=== PATIENT | male | born 1945 | race Caucasian/White ===

== ENCOUNTER 2017-03-31 06:28 | Day surgery (SDC) | payer MEDICARE, OTHER ==
[2017-03-25 17:23] VITALS: BMI 23.7
[~2017-03-31 06:28] MED LIST: DEXAMETHASONE SOD PHOSPHATE 10 MG/ML 1 ML VIAL IV ONE; HEPARIN SODIUM,PORCINE 5,000 UNIT/ML 1 ML VIAL SQ ONE; LACTATED RINGERS 1,000 ML IV SCH; ONDANSETRON 4 MG/2 ML VIAL IVP ONE; ceFAZolin 2 GM in SODIUM CHLORIDE 0.9% 100 ML IVPB ONE
[2017-03-31] MEDS ORDERED: LIDOCAINE 1% 20 ML VIAL (10MG/ML) FOR IV START INTRADERMA ONE (07:09)
--- NOTE | 2017-03-31 07:44 | P.GSHP ---
History of Present Illness H&P Date: 03/31/17 Chief Complaint: Left inguinal hernia Patient with complaints of left groin swelling. Increasing in size recently. Some discomfort. No bowel related complaints. His previous prostatectomy. No prior hernia Past Medical History Past Medical History: Cancer, GERD/Reflux, Osteoarthritis (OA) Additional Past Medical History / Comment(s): HX OF PROSTATE CANCER., ENVIRONMENTAL ALLERGIES., LEFT INGUINAL HERNIA. History of Any Multi-Drug Resistant Organisms: None Reported Additional Past Surgical History / Comment(s): PROSTATE, COLONOSCOPY Past Anesthesia/Blood Transfusion Reactions: No Reported Reaction Past Psychological History: No Psychological Hx Reported Smoking Status: Former smoker Past Alcohol Use History: Daily Additional Past Alcohol Use History / Comment(s): 1 BEER PER DAY OR LESS. QUIT SMOKING 15 YRS AGO. SMOKED APPROX 2 PPD FOR 20 YEARS. Past Drug Use History: None Reported - Past Family History Mother Family Medical History: Cancer Medications and Allergies Home Medications Medication Instructions Recorded Confirmed Type Acetaminophen Tab [Tylenol Tab] 650 mg PO Q6H PRN 03/25/17 03/31/17 History Aspirin [Adult Low Dose Aspirin EC] 81 mg PO Q48H 03/25/17 03/31/17 History Ibuprofen [Motrin] 200 - 400 mg PO Q6HR PRN 03/25/17 03/31/17 History Multivitamin/Iron/Folic Acid 1 each PO DAILY 03/25/17 03/31/17 History [Centrum Complete Multivit Tab] Prilosec Otc (Unknown Dose) 1 tab PO DAILY 03/25/17 03/31/17 History Simvastatin [Zocor] 40 mg PO HS 03/25/17 03/31/17 History Stool Softner 1 cap PO HS PRN 03/25/17 03/31/17 History Allergies Allergy/AdvReac Type Severity Reaction Status Date / Time No Known Allergies Allergy Verified 03/25/17 17:12 Surgical - Exam Vital Signs Temp Pulse Resp BP Pulse Ox 97.5 F L 71 16 164/77 99 03/31/17 06:46 03/31/17 06:46 03/31/17 06:46 03/31/17 06:46 03/31/17 06:46 Physical exam: General: Well-developed, well-nourished HEENT: Normocephalic, sclerae nonicteric Abdomen: Nontender, nondistended, reducible left hernia Extremities: No edema Neuro: Alert and oriented Assessment and Plan (1) Left inguinal hernia Narrative/Plan: Will proceed with operative repair with mesh. Risks of bleeding, infection, recurrence, chronic pain, visceral injury were discussed. He understands and wishes to proceed. Status: Acute
[2017-03-31] MEDS ORDERED: ROCURONIUM BROMIDE 10 MG/ML 10 ML VIAL IV ONE (07:57)
[2017-03-31] MEDS ORDERED: PROPOFOL 10 MG/ML 20 ML VIAL IV ONE (07:57)
[2017-03-31] MEDS ORDERED: LIDOCAINE 1% INJ 10MG/ML (20 ML MDV) ONE (07:57)
[2017-03-31] MEDS ORDERED: ePHEDrine 50 MG/ML 1 ML AMP ONE (07:57)
[2017-03-31] MEDS ORDERED: PHENYLEPHRINE-0.9% NACL SYG 1 MG/10 ML SYRINGE ONE (07:57)
[2017-03-31] MEDS ORDERED: GLYCOPYRROLATE 0.2 MG/ML 2 ML VIAL ONE (07:57)
[2017-03-31] MEDS ORDERED: SUCCINYLCHOLINE CHLORIDE 100 MG/5 ML SYR IV ONE (07:57)
[2017-03-31] MEDS ORDERED: MIDAZOLAM 2 MG/2 ML VIAL ONE (07:57)
[2017-03-31] MEDS ORDERED: NEOSTIGMINE 1 MG/ML 10 ML VIAL ONE (07:57)
[2017-03-31] MEDS ORDERED: fentaNYL (PF) 50 MCG/ML 2 ML AMP ONE (07:57)
[2017-03-31] MEDS ORDERED: BUPIVACAIN-EPI 0.25%-1:200,000 30 ML VIAL SQ ONE ×2 (08:15→08:59)
[2017-03-31 09:15] VITALS: TEMP 96.9
[2017-03-31] MEDS ORDERED: HYDROcodone/APAP 5-325MG 1 EACH TAB PO PRN (09:25)
[2017-03-31] MEDS ORDERED: NALOXONE 0.4 MG/ML 1 ML VIAL IV PRN (09:25)
--- NOTE | 2017-03-31 09:27 | P.PCN ---
Date of Procedure: 03/31/17 Preoperative Diagnosis: Postoperative Diagnosis: Procedure(s) Performed: PREOPERATIVE DIAGNOSIS: Left inguinal hernia POSTOPERATIVE DIAGNOSIS: Same PROCEDURE: Left inguinal hernia repair with mesh SURGEON: Rosemary EBL: Minimal ANESTHESIA: General COMPLICATIONS: None OPERATIVE PROCEDURE: Patient was placed in the operating table in the supine position and placed under general anesthesia. An oblique incision was made in the left groin. Dissection down through the subcutaneous tissues took place using electrocautery. The external oblique fascia was incised using a scalpel. This opening was lengthened using the Metzenbaum scissors. The spermatic cord was encircled with a [place] drain. The structures were identified and preserved. Careful dissection revealed an indirect hernia sac. This was opened and a portion of the sigmoid colon was adherent to the inner wall of the hernia sac. This was able to be sharply dissected back into the perineal cavity. This was carefully dissected back to the internal inguinal ring where it was ligated using 2 separate 0 silk stick tie sutures. A 3" x 6" Prolene mesh was cut to fit on the exposed fascia. This was sutured to the pubic tubercle the folding edge of the inguinal ligament and the conjoined tendon using 2-0 Nurolon sutures. A slit was created in the mesh and the mesh was wrapped around the spermatic cord and sutured back to itself. The external oblique was then reapproximated using a running 2-0 Vicryl suture. The subcutaneous tissues were reapproximated using a 3-0 Vicryl sutures. The skin was closed using 4-0 Monocryl sutures. Steri-Strips and sterile dressings were then applied. DISPOSITION: Stable to recovery room Implants: Indications for Procedure: Operative Findings: Description of Procedure:
[2017-03-31] MEDS: HYDROmorphone 1 MG/ML 1 ML SYRINGE IVP PRN ×2 (09:32→09:48)
[2017-03-31] MEDS ORDERED: HYDROcodone/APAP 5-325MG 1 EACH TAB PO ONE (10:10)
[2017-03-31 10:51] VITALS: RESP 18
[2017-03-31 11:13] VITALS: BP 144/83; PULSE 72
== END 2017-03-31 11:30 | disposition home or self-care (01) ==
LOC: OR 06:28
PROVIDERS: ATTEND Surgery
DX: K40.90 Unilateral inguinal hernia, without obstruction or gangrene, not specified as recurrent (principal); K21.9 Gastro-esophageal reflux disease without esophagitis; E78.5 Hyperlipidemia, unspecified; M19.90 Unspecified osteoarthritis, unspecified site; Z79.82 Long term (current) use of aspirin; Z79.899 Other long term (current) drug therapy; Z85.46 Personal history of malignant neoplasm of prostate; Z90.79 Acquired absence of other genital organ(s); Z87.891 Personal history of nicotine dependence
CPT/HCPCS: 88302; 49505; C1781; J2250; J1644; J1100; J2710; J0690; J2405; J2001; J3010; J1170; J2370; J0330; J2704

== ENCOUNTER → 2018-04-27 | Outpatient (CLI) | payer MEDICARE, OTHER ==
--- NOTE | 2018-04-27 22:43 | MR ---
EXAMINATION TYPE: MR brain wo con DATE OF EXAM: 04/27/2018 COMPARISON: NONE HISTORY: Mental status change and/or altered mental status per order and patient. TECHNIQUE: Multiplanar, multisequence imaging of the brain and brainstem is performed without IV cont rast. FINDINGS: Diffusion weighted images demonstrate a single focus of increased signal on diffusion-weighted images with diminished signal on ADC mapping and T1 hypointensity as well as T2 hyperintensity in the right parietal occipital subcortical white matter image 176 series 305 felt to reflect evolving area of ac [place] lacunar infarction. There are additional areas of less intensity on diffusion-weighted images wit h increased signal on ADC mapping of T1 hypointensity and T2 hyperintensity could reflect areas of frost bacute infarct throughout the right frontal and parietal lobes in the MCA distribution. There are are as of involvement in the deep and subcortical white matter. There are suspected area of old infarct o r encephalomalacia in the deep right parietal occipital white matter axial image 20 series 401 and 50 1. There is no worrisome extra-axial fluid collection. There is background mild ventricular and sulcal p rominence consistent with mild age-related cerebral atrophy. There are scattered foci of T2 hyperinte nsity seen throughout the white matter bilaterally most likely an basis of product of chronic small v essel ischemic change. Midline structures demonstrate normal morphology. The craniocervical junction appears within normal limits. Normal vascular flow voids are present. The visualized sinuses are clear and the globes are i ntact. IMPRESSION: 1. Asymmetric areas of ischemia of right versus left brain parenchyma felt to be in the MCA distribut ion. Small focus of acute lacunar infarct is felt present. There are additional areas of subacute inf arct and chronic infarction identified. There is background of mild diffuse cerebral atrophy and mild chronic small vessel ischemic change.
== END | disposition home or self-care (01) ==
LOC: RADMRIMAIN 19:22
PROVIDERS: ATTEND Family Medicine
DX: I63.9 Cerebral infarction, unspecified (principal); G31.9 Degenerative disease of nervous system, unspecified; M41.82 Other forms of scoliosis, cervical region; R41.82 Altered mental status, unspecified
CPT/HCPCS: 70551

== ENCOUNTER → 2018-06-30 | Outpatient (CLI) | payer MEDICARE, OTHER ==
--- NOTE | 2018-07-01 07:36 | US ---
EXAMINATION TYPE: US carotid duplex BILAT DATE OF EXAM: 06/30/2018 COMPARISON: NONE CLINICAL HISTORY: I69.30 STROKE. EXAM MEASUREMENTS: RIGHT: Peak Systolic Velocity (PSV) cm/sec ----- Right CCA: 102.2 ----- Right ICA: occluded ----- Right ECA: 143.1 elevated ICA/CCA ratio: RIGHT: End Diastole cm/sec ----- Right CCA: 18.0 ----- Right ICA: occluded ----- Right ECA: 22.9 LEFT: Peak Systolic Velocity (PSV) cm/sec ----- Left CCA: 96.8 ----- Left ICA: 116.2 ----- Left ECA: 150.3 elevated ICA/CCA ratio: 1.2 LEFT: End Diastole cm/sec ----- Left CCA: 30.6 ----- Left ICA: 38.6 ----- Left ECA: 0 VERTEBRALS (direction of flow): Right Vertebral: Antegrade Left Vertebral: Antegrade Rhythm: Normal Occluded right ICA Elevated velocities in bilateral ECA Moderate, Heterogenous plaque left bulb IMPRESSION: No evidence for hemodynamically significant stenosis. Criteria for Assigning % of Stenosis / Diameter reduction (Estimation based on the indirect measurements of the internal carotid artery velocities (ICA PSV). 1. Normal (no stenosis)=ICA PSV < 125 cm/s: ratio < 2.0: ICA EDV<40 cm/s. 2. Less than 50% stenosis=ICA PSV < 125 cm/s: ratio < 2.0: ICA EDV<40 cm/s. 3. 50 to 69% stenosis=ICA PSV of 125 to 230 cm/s: ration 2.0 ? 4.0: ICA EDV 40-100 cm/s. 4. Greater than 70% stenosis to near occlusion= ICA PSV > 230 cm/s: ratio > 4.0: ICA EDV > 100 cm/s. 5. Near occlusion= ICA PSV velocities may be low or undetectable: variable ratio and ICA EDV. 6. Total occlusion=unable to detect flow.
== END | disposition home or self-care (01) ==
LOC: RADUSWWP 14:30
PROVIDERS: ATTEND Psychiatry & Neurology Neurology
DX: I69.30 Unspecified sequelae of cerebral infarction (principal)
CPT/HCPCS: 93880

== ENCOUNTER → 2018-08-03 | Day surgery (SDC) | payer MEDICARE, OTHER ==
[2018-07-28 10:27] VITALS: BMI 23.7
[~2018-08-03] MED LIST changes: -DEXAMETHASONE SOD PHOSPHATE 10 MG/ML 1 ML VIAL IV ONE; -HEPARIN SODIUM,PORCINE 5,000 UNIT/ML 1 ML VIAL SQ ONE; +IV FLUID CONTINUATION 475 ML IV ONE; -LACTATED RINGERS 1,000 ML IV SCH; +LIDOCAINE 1% INJ 10MG/ML (20 ML MDV) ONE; +MIDAZOLAM 2 MG/2 ML VIAL IVP ONE; +MIDAZOLAM 2 MG/2 ML VIAL ONE; -ONDANSETRON 4 MG/2 ML VIAL IVP ONE; +SODIUM CHLORIDE 0.9% 1,000 ML IV SCH; -ceFAZolin 2 GM in SODIUM CHLORIDE 0.9% 100 ML IVPB ONE; +ceFAZolin IN SWFI 2 GM/20 ML SYRINGE IVP ONE; +fentaNYL (PF) 50 MCG/ML 2 ML AMP IV ONE; +fentaNYL (PF) 50 MCG/ML 2 ML AMP ONE
[2018-08-03 06:52] VITALS: RESP 18
[2018-08-03] MEDS: BENZOCAINE SPRAY 1 CAN MUCOUS MEM ONE ×3 (07:42→07:52)
[2018-08-03 08:20] VITALS: TEMP 98
--- NOTE | 2018-08-03 08:21 | ECHOT ---
TRANSESOPHAGEAL ECHOCARDIOGRAM INDICATION: TIA. PROCEDURE NOTE: After obtaining informed consent, transesophageal echocardiogram was performed in left lateral position using an Omniplane probe. Local and IV sedation were obtained using Xylocaine spray and intravenous Versed and fentanyl. The patient tolerated the procedure well without any obvious immediate complications. Patient received moderate conscious sedation. Total sedation time was 15 minutes. FINDINGS: 1. There is no intracardiac thrombus within the left atrial appendage, left atrium, right atrium, right ventricular or left ventricle. 2. Left ventricle has normal size and systolic function. 3. Interatrial septum: There is no evidence of vddc-ks-[id number] shunt by color-flow Doppler or wbejm-cy-yfog shunt by agitated saline contrast study. 4. Mitral valve appears anatomically normal. There is mild mitral regurgitation noted. 5. There is mild tricuspid regurgitation noted. 6. Aortic valve is a 3-leaflet valve. There is no evidence of aortic stenosis or regurgitation. 7. Aorta: Aortic root is free of aneurysm, dissection or significant atherosclerosis. CONCLUSIONS: 1. Normal left ventricular systolic function. 2. No evidence of intracardiac thrombus. 3. No intracardiac shunt. MMODL / IJN: [id number] /
--- NOTE | 2018-08-03 12:18 | CE ---
CARDIAC ELECTROPHYSIOLOGY REPORT LOOP RECORDER INSERTION REPORT: PROCEDURE: Loop recorder insertion. PERFORMED BY: Dr. Stephanie Rodríguez. Moderate conscious sedation time was less than 15 minutes. CLINICAL INFORMATION: Mr. Sarath Gibson, a gentleman with a history of CVA with good recovery. 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 He was evaluated and seen by Dr. Villanueva, who performed a transesophageal echo today and he was also advised to have a loop recorder. The risks, benefits, options were explained to the patient. PROCEDURE NOTE: Under local anesthesia and strict aseptic precautions, after administration of the antibiotic concurrently, a single stab incision was made in the left 4th intercostal space. Using the tool provided the [employer] loop recorder link device was inserted in a lateral direction. A single suture was used to close the incision. The recordings were excellent with a signal of 0.49 mV. The patient tolerated the procedure well without complication. The settings were for a cryptogenic stroke settings with a low rate of 40 and high rate of 158 beats per minute. The patient tolerated procedure well without complications. The details were discussed with the patient and and I expect he will be discharged in the next [address] Dr[address] Villanueva in the office for a visit as well as a device check. LOOP RECORDER DETAILS: Corporate Director is [employer], model Reveal LINQ [id number], serial #[id number]. The settings were for a cryptogenic stroke with a low rate of 40 and high rate of 158 beats per minute and a tachy duration of 16 beats. Patient tolerated the procedure well. MMODL / IJN: [id number] /
[2018-08-03 12:45] VITALS: BP 139/95; PULSE 63
== END ==
LOC: CATHCVL 06:17
PROVIDERS: ATTEND Internal Medicine Cardiovascular Disease
DX: G45.9 Transient cerebral ischemic attack, unspecified (principal); I34.0 Nonrheumatic mitral (valve) insufficiency; E78.5 Hyperlipidemia, unspecified; Z79.82 Long term (current) use of aspirin; Z79.899 Other long term (current) drug therapy; Z82.49 Family history of ischemic heart disease and other diseases of the circulatory system; Z72.0 Tobacco use
CPT/HCPCS: 93312; 93320; 93325; 33282; C1764; J2250; J3010; J0690

== ENCOUNTER 2019-11-03 10:01 | Inpatient (IN) | payer MEDICARE, OTHER ==
[2019-11-03] MEDS ORDERED: SODIUM CHLORIDE 0.9% 500 ML 500 ML IV STA (10:13)
--- NOTE | 2019-11-03 10:18 | ED ---
General Adult HPI - General Chief complaint: Neuro Symptoms/Deficit Stated complaint: Vision loss Time Seen by Provider: 11/03/19 10:05 Source: patient, RN notes reviewed, old records reviewed Mode of arrival: EMS Limitations: no limitations - History of Present Illness Initial comments: This is a 74-year-old male who presents emergency Department complaining of almost complete visual loss out of his right eye. Patient states he went to bed last night at about midnight and he woke up this morning and had almost complete visual loss out of his right eye. Patient denies any eye pain. Patient denies any headache patient denies any numbness or weakness of any of his extremities. Patient denies any speech problem. Patient states he had a stroke in the past and they began with decreased vision however today is much worse. Patient denies any history of diabetes. Patient does state he has a history of high blood pressure. Patient denies any recent fever chills. Patient denies any chest pain palpitations difficulty breathing shortness of breath. Patient denies any abdominal pain. - Related Data Home Medications Medication Instructions Recorded Confirmed Acetaminophen Tab [Tylenol Tab] 650 mg PO Q6H PRN 03/25/17 08/03/18 Ibuprofen [Motrin] 200 - 400 mg PO Q6HR PRN 03/25/17 08/03/18 Multivitamin/Iron/Folic Acid 1 each PO DAILY 03/25/17 08/03/18 [Centrum Complete Multivit Tab] Prilosec Otc (Unknown Dose) 1 tab PO DAILY 03/25/17 08/03/18 Simvastatin [Zocor] 40 mg PO HS 03/25/17 08/03/18 Stool Softner 1 cap PO HS 03/25/17 08/03/18 Aspirin 325 mg PO DAILY 07/28/18 08/03/18 Allergies Allergy/AdvReac Type Severity Reaction Status Date / Time No Known Allergies Allergy Verified 08/03/18 06:39 Review of Systems ROS Statement: Those systems with pertinent positive or pertinent negative responses have been documented in the HPI. ROS Other: All systems not noted in ROS Statement are negative. Past Medical History Past Medical History: Cancer, CVA/TIA, Eye Disorder, GERD/Reflux, Hyperlipidemia, Osteoarthritis (OA) Additional Past Medical History / Comment(s): CVA APRIL 2018, NO RESIDUAL EFFECTS, HX OF PROSTATE CANCER 10 YRS AGO, ENVIRONMENTAL ALLERGIES. DRY EYES. History of Any Multi-Drug Resistant Organisms: None Reported Past Surgical History: Hernia Repair Additional Past Surgical History / Comment(s): PROSTATE SURGERY, COLONOSCOPY. Past Anesthesia/Blood Transfusion Reactions: No Reported Reaction Past Psychological History: No Psychological Hx Reported Smoking Status: Former smoker Past Alcohol Use History: Daily Past Drug Use History: None Reported - Past Family History Mother Family Medical History: Cancer Father Family Medical History: Cancer Brother(s) Family Medical History: Cancer General Exam - General Exam Comments Initial Comments: GENERAL: Patient is well-developed and well-nourished. Patient is nontoxic and well- hydrated and is in no acute distress. ENT: Neck is soft and supple. No significant lymphadenopathy is noted. Oropharynx is clear. Moist mucous membranes. Neck has full range of motion without eliciting any pain. EYES: The sclera were anicteric and conjunctiva were pink and moist. Extraocular movements were intact and pupils were equal round and reactive to light. Eyel ids were unremarkable. PULMONARY: Unlabored respirations. Good breath sounds bilaterally. No audible rales rhonchi or wheezing was noted. CARDIOVASCULAR: There is a regular rate and rhythm without any murmurs gallops or rubs. ABDOMEN: Soft and nontender with normal bowel sounds. No palpable organomegaly was noted. There is no palpable pulsatile mass. SKIN: Skin is clear with no lesions or rashes and otherwise unremarkable. NEUROLOGIC: Patient is alert and oriented x3. Cranial nerves II through XII are grossly intact. Motor and sensory are also intact. Normal speech, volume and content. Symmetrical smile. Patient is unable to see out of the right eye. MUSCULOSKELETAL: Normal extremities with adequate strength and full range of motion. No lower extremity swelling or edema. No calf tenderness. LYMPHATICS: No significant lymphadenopathy is noted PSYCHIATRIC: Normal psychiatric evaluation. Limitations: no limitations Course Vital Signs 11/03/19 11/03/19 11/03/19 10:05 10:15 10:30 Temperature 97.6 F Pulse Rate 71 68 Respiratory 16 19 20 Rate Blood Pressure 166/87 166/87 165/86 O2 Sat by Pulse 99 99 98 Oximetry 11/03/19 10:45 Temperature Pulse Rate 77 Respiratory 18 Rate Blood Pressure 187/90 O2 Sat by Pulse 99 Oximetry Medical Decision Making - Medical Decision Making EKG shows normal sinus rhythm at 61 bpm VT interval 258 QRS is 70 QT interval 416 QTC is 418. Patient's EKG shows no ST segment elevation or depression or T wave abnormalities are noted. CT of the brain shows no acute abnormality. CTA of the head and neck shows a completely occluded right internal carotid artery and a stenotic left carotid artery. I spoke with Dr. Goddard and Dr. Tyrese Xiong wanted the patient admitted the hospital and he will see him at this facility. I spoke with Dr. STARR agreed to admit the patient admitted the patient wrote admitting orders I consulted vascular surgery as well as neurology - Lab Data Result diagrams: 11/03/19 10:09 11/03/19 10:09 Lab Results 11/03/19 11/03/19 11/03/19 Range/Units 10:09 10:09 10:09 WBC 6.2 (3.8-10.6) k/uL RBC 4.60 (4.30-5.90) m/uL Hgb 15.2 (13.0-17.5) gm/dL Hct 43.7 (39.0-53.0) % MCV 95.0 (80.0-100.0) fL MCH 33.1 (25.0-35.0) pg MCHC 34.9 (31.0-37.0) g/dL RDW 11.7 (11.5-15.5) % Plt Count 155 (150-450) k/uL Neutrophils % 70 % Lymphocytes % 20 % Monocytes % 4 % Eosinophils % 2 % Basophils % 1 % Neutrophils # 4.3 (1.3-7.7) k/uL Lymphocytes # 1.2 (1.0-4.8) k/uL Monocytes # 0.3 (0-1.0) k/uL Eosinophils # 0.1 (0-0.7) k/uL Basophils # 0.0 (0-0.2) k/uL PT 10.1 (9.0-12.0) sec INR 0.9 (<1.2) APTT 23.3 (22.0-30.0) sec Sodium 142 (137-145) mmol/L Potassium 4.4 (3.5-5.1) mmol/L Chloride 110 H (98-107) mmol/L Carbon Dioxide 24 (22-30) mmol/L Anion Gap 8 mmol/L BUN 22 H (9-20) mg/dL Creatinine 0.98 (0.66-1.25) mg/dL Est GFR (CKD-EPI)AfAm 88 (>60 ml/min/1.73 sqM) Est GFR (CKD-EPI)NonAf 76 (>60 ml/min/1.73 sqM) Glucose 107 H (74-99) mg/dL POC Glucose (mg/dL) (75-99) mg/dL POC Glu School Age Program Teacher ID Calcium 9.7 (8.4-10.2) mg/dL Total Bilirubin 0.7 (0.2-1.3) mg/dL AST 23 (17-59) U/L ALT 13 (4-49) U/L Alkaline Phosphatase 73 (38-126) U/L Total Creatine Kinase (55-170) U/L CK-MB (CK-2) (0.0-2.4) ng/mL CK-MB (CK-2) Rel Index Troponin I (0.000-0.034) ng/mL Total Protein 7.3 (6.3-8.2) g/dL Albumin 4.3 (3.5-5.0) g/dL 11/03/19 11/03/19 Range/Units 10:09 10:14 WBC (3.8-10.6) k/uL RBC (4.30-5.90) m/uL Hgb (13.0-17.5) gm/dL Hct (39.0-53.0) % MCV (80.0-100.0) fL MCH (25.0-35.0) pg MCHC (31.0-37.0) g/dL RDW (11.5-15.5) % Plt Count (150-450) k/uL Neutrophils % % Lymphocytes % % Monocytes % % Eosinophils % % Basophils % % Neutrophils # (1.3-7.7) k/uL Lymphocytes # (1.0-4.8) k/uL Monocytes # (0-1.0) k/uL Eosinophils # (0-0.7) k/uL Basophils # (0-0.2) k/uL PT (9.0-12.0) sec INR (<1.2) APTT (22.0-30.0) sec Sodium (137-145) mmol/L Potassium (3.5-5.1) mmol/L Chloride (98-107) mmol/L Carbon Dioxide (22-30) mmol/L Anion Gap mmol/L BUN (9-20) mg/dL Creatinine (0.66-1.25) mg/dL Est GFR (CKD-EPI)AfAm (>60 ml/min/1.73 sqM) Est GFR (CKD-EPI)NonAf (>60 ml/min/1.73 sqM) Glucose (74-99) mg/dL POC Glucose (mg/dL) 107 H (75-99) mg/dL POC Glu School Age Program Teacher ID Michael Perkins Calcium (8.4-10.2) mg/dL Total Bilirubin (0.2-1.3) mg/dL AST (17-59) U/L ALT (4-49) U/L Alkaline Phosphatase (38-126) U/L Total Creatine Kinase 53 L (55-170) U/L CK-MB (CK-2) 0.4 (0.0-2.4) ng/mL CK-MB (CK-2) Rel Index 0.8 Troponin I <0.012 (0.000-0.034) ng/mL Total Protein (6.3-8.2) g/dL Albumin (3.5-5.0) g/dL Disposition Clinical Impression: Cerebrovascular accident (CVA) Disposition: ADMITTED IP TO THIS HOSP Referrals: Teodoro Andrea DO [Primary Care Provider] - 1-2 days Time of Disposition: 11:54
[2019-11-03 10:24] LABS: Basophils % (A) 1 %; Eosinophils # (A) 0.1 k/uL (0-0.7); Eosinophils % (A) 2 %; HCT 43.7 % (39.0-53.0); HGB 15.2 gm/dL (13.0-17.5); Lymphocytes # (A) 1.2 k/uL (1.0-4.8); Lymphocytes % (A) 20 %; MCH 33.1 pg (25.0-35.0); MCHC 34.9 g/dL (31.0-37.0); Mean Platelet Volume 9.9; Monocytes # (A) 0.3 k/uL (0-1.0); Monocytes % (A) 4 %; Neutrophils # (A) 4.3 k/uL (1.3-7.7); Neutrophils % (A) 70 %; Platelet Count 155 k/uL (150-450); RDW 11.7 % (11.5-15.5); WBC 6.2 k/uL (3.8-10.6)
[2019-11-03 10:25] LABS: Glucose,Whole Blood 107 mg/dL (75-99)
[2019-11-03 10:32] LABS: Albumin 4.3 g/dL (3.5-5.0); Calcium 9.7 mg/dL (8.4-10.2); Potassium 4.4 mmol/L (3.5-5.1); Total Bilirubin 0.7 mg/dL (0.2-1.3); Total Protein 7.3 g/dL (6.3-8.2)
[2019-11-03 10:36] LABS: INR 0.9 (<1.2); Partial Thromboplastin Time 23.3 sec (22.0-30.0); Prothrombin Time 10.1 sec (9.0-12.0)
--- NOTE | 2019-11-03 10:36 | CT ---
EXAMINATION TYPE: CT brain wo con for TPA DATE OF EXAM: 11/03/2019 COMPARISON: None HISTORY: Right eye visual loss, stroke symptoms CT DLP: 1134.[address] of the brain was performed. The ventricles, basal cisterns and sulci overlying the cerebral convexities demonstrate mild enlargem ent. Small area of remote insult right occipital region. There is no evidence for intracranial hemorrhage or sulcal effacement. There is decreased attenuation about the periventricular white matter and deep white matter of both c erebral hemispheres, compatible with chronic small vessel ischemia. Differential diagnosis does inclu de demyelination. No mass effects are seen.No midline shift. Osseous calvarium is intact. If symptoms persist consider MRI. IMPRESSION: 1. Age related atrophic and chronic small vessel ischemic change without acute intracranial process s een at this time.
[2019-11-03] MEDS ORDERED: CLOPIDOGREL 75 MG TAB PO STA (10:38)
[2019-11-03] MEDS ORDERED: ASPIRIN 325 MG TAB PO STA (10:39)
[2019-11-03 10:43] LABS: Creatine Kinase 53 U/L (55-170)
[2019-11-03 10:57] LABS: Creatine Kinase MB 0.4 ng/mL (0.0-2.4); Troponin I <0.012 ng/mL (0.000-0.034)
--- NOTE | 2019-11-03 11:06 | XR ---
EXAMINATION TYPE: XR chest 2V DATE OF EXAM: 11/03/2019 COMPARISON: NONE HISTORY: Altered mental status and weakness. TECHNIQUE: Frontal and lateral views of the chest are obtained. FINDINGS: There is chronic parenchymal change without suspicious focal air space opacity, pleural ef fusion, or pneumothorax seen. Moderate biapical pleural/parenchymal scarring. The cardiac silhouette size is within normal limits. Overlying loop recorder anterior left chest wall is present. Multilevel spurring in the lower thoracic spine. IMPRESSION: Chronic changes without acute pulmonary process.
--- NOTE | 2019-11-03 11:17 | CT ---
EXAMINATION TYPE: CT angio head neck DATE OF EXAM: 11/03/2019 COMPARISON: HISTORY: Rt eye vision loss CT DLP: 1384.8 mGycm CONTRAST: Performed with IV Contrast, patient injected with 65 mL of Isovue 370. Combination Contrast CTA cervical carotids and [place] CTA cervical carotids with 3-D recons truction Contrast CTA of the cervical carotids was performed 3-D reconstruction imaging obtained at a separate workstation. Right carotid system: Mild plaque is seen of the right common carotid artery. Nonvisualization of the right internal carotid artery compatible with occlusion. ECA is patent. Right vertebral artery appe ars unremarkable. Left carotid system: Mild plaque is seen of the left common carotid artery. There is severe soft cris que also noted at the proximal ICA. High-grade stenosis noted estimated at 90%. ECA is patent. Left vertebral artery appears unremarkable. IMPRESSION: 1. Occlusion right ICA. 2. High-grade stenosis noted proximal left ICA estimated at 90%. CTA [place] with 3-D reconstruction Contrast CTA of the [place] was performed 3-D reconstruction imaging obtained at a separate workstation. Vertebrobasilar and their major tributaries are patent. I do not see evidence for sizable aneurysm o r vascular malformation. Nonvisualization right ICA. Left ICA is visualized. Please note MRI provides greater sensitivity and specificity. Visualized brain appears grossly unremarkable. IMPRESSION: 1. Nonvisualization of the right internal carotid artery.
[2019-11-03] MEDS ORDERED: ACETAMINOPHEN TAB 325 MG TAB PO PRN (13:58)
--- NOTE | 2019-11-03 15:22 | P.HPIM ---
History of Present Illness This is a pleasant 74 years old male with past medical history of CVA/TIA, GERD, hyperlipidemia, osteoarthritis, prostate cancer status post surgery, constipation. Presents with sudden loss patient in the right eye. Patient woke up with loss of vision in his right eye, without any associated symptoms, no weakness in arms or limbs, no headache, no abnormal sensation, no difficulty swallowing. As time goes on his septic and in some vision in his right eye but this blurry and double vision. Of note the patient says about 2 years ago he has TIA with a similar I problem. At that time he saw Dr. Estrada the milk treater for loop recorder which was uneventful. Patient at home was taking aspirin 325 mg daily but not Plavix Vital signs stable, blood pressure on the high side currently 175/81. Labs including CBC, BMP, INR, liver enzymes were unremarkable. Troponin is negative. EKG showing normal sinus rhythm at [address]-T changes. CT of the head: No acute process like hemorrhage or mass or deviation. CTA of the head and neck showing occlusion of the right ICA and high-grade stenosis of the proximal left ICA estimated to be 90%. As per emergency room team vascular surgeon has been consulted and they recommended to admit the patient to my clinic in hospital under medical service and they will be on consult. On admission patient was started on aspirin 325 mg and Plavix 300 mg once. Also he was given normal saline bolus 500 mL Review of Systems CONSTITUTIONAL: No fever, no malaise, no fatigue. HEENT: No recent visual problems or hearing problems. Denied any sore throat. CARDIOVASCULAR: No orthopnea, PND, no palpitations, no syncope. PULMONARY: No shortness of breath, no cough, no hemoptysis. GASTROINTESTINAL: No diarrhea, no nausea, no vomiting, no abdominal pain. Normoactive bowel sounds. NEUROLOGICAL: No headaches, no weakness, no numbness. HEMATOLOGICAL: Denies any bleeding or petechiae. GENITOURINARY: Denies any burning micturition, frequency, or urgency. MUSCULOSKELETAL/RHEUMATOLOGICAL: Denies any joint pain, swelling, or any muscle pain. ENDOCRINE: Denies any polyuria or polydipsia. Past Medical History Past Medical History: Cancer, CVA/TIA, Eye Disorder, GERD/Reflux, Hyperlipidemia, Osteoarthritis (OA) Additional Past Medical History / Comment(s): 04/2018 TIA-experienced R eye vision change and L arm numbness/some mental changes, prostate cancer with surgery, arthritis in shoulders/back, constipation. History of Any Multi-Drug Resistant Organisms: None Reported Past Surgical History: Hernia Repair, Prostate Surgery Additional Past Surgical History / Comment(s): Bilateral inguinal hernia repairs, prostatectomy, colonoscopy, SANDRINE, Loop recorder Past Anesthesia/Blood Transfusion Reactions: No Reported Reaction Smoking Status: Former smoker - Past Family History Mother Family Medical History: Cancer Additional Family Medical History / Comment(s): multiple myeloma Father Family Medical History: Cancer Additional Family Medical History / Comment(s): Lymphoma Brother(s) Family Medical History: Cancer Additional Family Medical History / Comment(s): Hodgkins or nonhodgkins lymphoma Medications and Allergies Home Medications Medication Instructions Recorded Confirmed Type Acetaminophen Tab [Tylenol Tab] 325 - 650 mg PO Q6H PRN 03/25/17 11/03/19 History Ibuprofen [Motrin] 200 - 400 mg PO Q6HR PRN 03/25/17 11/03/19 History Aspirin 325 mg PO DAILY 07/28/18 11/03/19 History Metoprolol Succinate (ER) [Toprol 12.5 mg PO DAILY 11/03/19 11/03/19 History Xl] Multivit-Min/FA/Lycopen/Lutein 1 tab PO DAILY 11/03/19 11/03/19 History [Centrum Silver Men Tablet] Omeprazole Magnesium [PriLOSEC OTC] 20 mg PO DAILY 11/03/19 11/03/19 History Rosuvastatin Calcium 20 mg PO HS 11/03/19 11/03/19 History Allergies Allergy/AdvReac Type Severity Reaction Status Date / Time No Known Allergies Allergy Verified 11/03/19 11:55 Physical Exam Vitals: Vital Signs Temp Pulse Resp BP Pulse Ox 11/03/19 12:55 73 18 175/81 100 11/03/19 12:17 97.6 F 77 18 169/92 96 11/03/19 12:15 77 18 169/92 96 11/03/19 10:45 77 18 187/90 99 11/03/19 10:30 20 165/86 98 11/03/19 10:15 68 19 166/87 99 11/03/19 10:05 97.6 F 71 16 166/87 99 Intake and Output 11/02/19 11/03/19 11/03/19 22:59 06:59 14:59 Other: Voiding Method Toilet Weight 81.647 kg GENERAL: The patient is alert and oriented x3, not in any acute distress. Well developed, well nourished. HEENT: Pupils are round and equally reacting to light. EOMI. No scleral icterus. No conjunctival pallor. Normocephalic, atraumatic. No pharyngeal erythema. No thyromegaly. CARDIOVASCULAR: S1 and S2 present. No murmurs, rubs, or gallops. PULMONARY: Chest is clear to auscultation, no wheezing or crackles. ABDOMEN: Soft, nontender, nondistended, normoactive bowel sounds. No palpable organomegaly. MUSCULOSKELETAL: No joint swelling or deformity. EXTREMITIES: No cyanosis, clubbing, or pedal edema. -NEUROLOGICAL: Patient is awake and alert 3. He has Blurred and double vision of the right eye, rest of cranial nerves are grossly intact. Strength is 5/5 in all limbs, sensation intact, meningeal signs are absent Gross neurological examination did not reveal any focal deficits. SKIN: No rashes. No petechiae Results CBC & Chem 7: 11/03/19 10:09 11/03/19 10:09 Labs: Abnormal Lab Results - Last 24 Hours (Table) 11/03/19 11/03/19 11/03/19 Range/Units 10:09 10:09 10:14 Chloride 110 H (98-107) mmol/L BUN 22 H (9-20) mg/dL Glucose 107 H (74-99) mg/dL POC Glucose (mg/dL) 107 H (75-99) mg/dL Total Creatine Kinase 53 L (55-170) U/L Thrombosis Risk Factor Assmnt - Choose All That Apply Any of the Below Risk Factors Present?: Yes Other Risk Factors: Yes Each Risk Factor Represents 2 Points: Age 61-74 years, Malignancy Other congenital or acquired thrombophilia - If yes, enter type in comment: No Each Risk Factor Represents 5 Points: Stroke (< 1 month) Thrombosis Risk Factor Assessment Total Risk Factor Score: 9 Thrombosis Risk Factor Assessment Level: High Risk Assessment and Plan Assessment: Loss of right eye vision mostly related to acute stroke, associated with double/blurred vision Bilateral carotid artery disease, total occlusion of the right ICA and 90% stenosis of the left ICA Hyperlipidemia GERD History of prostate cancer status post surgery Constipation History of TIA/CVA Plan: This is a pleasant 74 years old male who presents with loss of vision in the right eye and acute stroke. Consult neurology and vascular surgery for his carotid artery stenosis/occlusion. He knew with aspirin and Plavix. Continue with a neurogenic Labs and medication were reviewed.. Continue same treatment. Continue with symptomatic treatment. Resume home medication. Monitor lytes and vitals. DVT and GI prophylaxis. Further recommendations of the clinical course of the patient DVT prophylaxis: Subcutaneous heparin GI Prophylaxis: Pepcid PT/OT: Pending Prognosis is guarded
--- NOTE | 2019-11-03 16:16 | P.CNNES ---
History of Present Illness Consult date: 11/03/19 Requesting physician: Donte Wadsworth Reason for Consult: CVA History of Present Illness: Patient is a 74-year-old male, who woke up this morning at 8:30 AM and had no vision in the right eye. It was all a murcia fog. Patient states that he went to bed at 12:30 AM in usual state of health. He remembers waking up at 3 AM and he was feeling fine. The next time he woke up at 8:30 AM, he noticed no vision right eye. No other associated focal neurological symptoms like numbness tingling focal weakness, headache, slurred speech facial droop or balance issues. Patient arrived to the ER at 10:01 AM. Patient underwent computed tomography scan of the head, which revealed age-related atrophy and chronic small vessel ischemic changes without acute intracranial process. CTA of the head and neck showed nonvisualization of the right ICA. It also showed high- grade stenosis of left ICA estimated 90%. EKG showed normal sinus rhythm. Chest x-ray showed chronic changes without acute pulmonary process. Patient went arrived to the ER, blood pressure was 166/87, pulse rate 71 saturation 99%. Patient had normal CBC, PT/PTT, Chem-20. Patient was given a loading dose of Plavix 300 mg in the ER along with aspirin 325 mg. Patient states that his vision has slightly improved in the. 3. At first it was complete murcia all around. Now he has some appearance of peripheral vision, but the Center is still murcia fog. Patient denies any problem with the vision field on the left. Patient has history of hypertension, and it. Her blood pressures has been running high. He denies diabetes. He has hyperlipidemia and recently his medications simvastatin was changed to Crestor by his speech writer about a week ago. Patient does take a full aspirin 325 mg daily for almost a year. Prior he has been taking a low-dose aspirin for a few years. Patient states that he is fully compliant with medication did not missed dose of his aspirin. Patient has history of smoking 2 packs per day for 40 years, quit at age 60 (age [age]). Denies any alcohol. Patient also mentions that about 2 years ago he has similar visual symptoms in the right eye. He had intermittent graying of the vision, would occur for a couple seconds to half a minute off and on for a week. It finally cleared up. However at that time he also had some numbness of left side of his arm. He was diagnosed with acute stroke at that time with right ICA occlusion. Review of Systems All 14 point review of systems were reviewed and is unremarkable except above. Past Medical History Past Medical History: Cancer, CVA/TIA, Eye Disorder, GERD/Reflux, Hyperlipidemia, Osteoarthritis (OA) Additional Past Medical History / Comment(s): 04/2018 TIA-experienced R eye vision change and L arm numbness/some mental changes, prostate cancer with surgery, arthritis in shoulders/back, constipation. History of Any Multi-Drug Resistant Organisms: None Reported Past Surgical History: Hernia Repair, Prostate Surgery Additional Past Surgical History / Comment(s): Bilateral inguinal hernia repai rs, prostatectomy, colonoscopy, SANDRINE, Loop recorder Past Anesthesia/Blood Transfusion Reactions: No Reported Reaction Smoking Status: Former smoker - Past Family History Mother Family Medical History: Cancer Additional Family Medical History / Comment(s): multiple myeloma Father Family Medical History: Cancer Additional Family Medical History / Comment(s): Lymphoma Brother(s) Family Medical History: Cancer Additional Family Medical History / Comment(s): Hodgkins or nonhodgkins lymphoma Medications and Allergies Home Medications Medication Instructions Recorded Confirmed Type Acetaminophen Tab [Tylenol Tab] 325 - 650 mg PO Q6H PRN 03/25/17 11/03/19 History Ibuprofen [Motrin] 200 - 400 mg PO Q6HR PRN 03/25/17 11/03/19 History Aspirin 325 mg PO DAILY 07/28/18 11/03/19 History Metoprolol Succinate (ER) [Toprol 12.5 mg PO DAILY 11/03/19 11/03/19 History Xl] Multivit-Min/FA/Lycopen/Lutein 1 tab PO DAILY 11/03/19 11/03/19 History [Centrum Silver Men Tablet] Omeprazole Magnesium [PriLOSEC OTC] 20 mg PO DAILY 11/03/19 11/03/19 History Rosuvastatin Calcium 20 mg PO HS 11/03/19 11/03/19 History Allergies Allergy/AdvReac Type Severity Reaction Status Date / Time No Known Allergies Allergy Verified 11/03/19 11:55 Physical Examination - Vital Signs Vital Signs: Vital Signs Temp Pulse Resp BP Pulse Ox 11/03/19 14:55 97.1 F L 77 18 161/77 99 11/03/19 12:55 73 18 175/81 100 11/03/19 12:17 97.6 F 77 18 169/92 96 11/03/19 12:15 77 18 169/92 96 11/03/19 10:45 77 18 187/90 99 11/03/19 10:30 20 165/86 98 11/03/19 10:15 68 19 166/87 99 11/03/19 10:05 97.6 F 71 16 166/87 99 Intake and Output 11/03/19 11/03/19 11/03/19 06:59 14:59 22:59 Other: Voiding Method Toilet Weight 81.647 kg On examination patient is an elderly male, in no acute distress. Patient is alert and awake fully oriented. Speech and language functions are normal. Attention and concentration fund of knowledge is adequate. On cranial examination pupils are round and reactive to light. Patient has right APD. Patient has no central vision in the right eye. He does have some peripheral vision in the right eye. Left visual field is completely normal. Face is symme tric and tongue protrudes the midline. Palatal elevation and sensation normal. On muscle strength testing there is no pronator drift and the strength is normal in arms and legs distally and proximally. Reflexes are 2+ all over and plantars downgoing. Sensory touch is equal with no neglect. No ataxia for [id number] testing. Tone and bulk of muscles and gait is normal. Patient does have bilateral carotid bruit. S1 and S2 was audible. 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 Patient has history of similar transient vision loss 2 years ago, but resolved spontaneously. * Chronically occluded right ICA. Severe stenosis of left ICA. * Bilateral carotid bruit. * Hypertension * Hyperlipidemia * X tobacco use. Plan: * I will check ESR, CRP, [place], hemoglobin A1c, fasting a.m. lipid panel. * Suggest ophthalmology consultation for acute right visual loss. * Patient has been loaded with Plavix 300 mg. We will continue Plavix 75 mg daily and aspirin 81 mg. * Agree with the vascular surgical consultation for left ICA stenosis. * Avoid drop in blood pressure. May keep permissible hypertension for 24 hours. * Neurology coverage not available on the weekend.
[2019-11-03 16:48] LABS: C Reactive Protein <5.0 mg/L (<10.0); Cholesterol 187 mg/dL (<200); HDL Cholesterol 46 mg/dL (40-60); LDL Cholesterol,Calculated 97 mg/dL (0-99); Triglycerides 218 mg/dL (<150)
[2019-11-03] MEDS ORDERED: PROPARACAINE 0.5% OPHTH DROPS 15 ML BTL BOTH EYES STA (17:05)
[2019-11-03] MEDS ORDERED: TROPICAMIDE 1% OPHTH DROPS 2 ML BTL BOTH EYES ONE (17:05)
[2019-11-03] MEDS ORDERED: ARTIFICIAL TEARS-HYPROMELLOSE DROPS 15 ML BTL BOTH EYES PRN ×2 (17:05→17:06)
[2019-11-03] MEDS ORDERED: PHENYLEPHRINE 2.5% OPHTH DRP 2ML BOTH EYES SCH (17:15)
--- NOTE | 2019-11-03 18:37 | P.GSCN ---
History of Present Illness Consult date: 11/03/19 Reason for Consult: Carotid occlusive disease. History of present illness: Patient is a 71-year-old male who awoke today with visual disturbance of the right eye. A similar issue had occurred approximately 1 year prior. At that time, in June 2018, the patient was found to have a total occlusion of the right ICA with no significant stenosis of the contralateral side. He was treated with the appropriate medical therapy. Today outside of his eye issue he reported no neurologic symptoms such as slurring of the speech upper/lower extremity paralysis or paresthesia or facial droop. He has been followed on an every six-month basis by Dr. De Jesus and was last seen in Dr. De Jesus's office in June of this year. Carotid duplex was performed at that time. The patient does not recall any significant findings of this exam and was scheduled to see Dr. De Jesus in his office in December 2019. He denies any chest pain with exertion or claudication with ambulation. He has a history of tobacco use although stopped smoking tobacco approximate 15 years ago. My evaluation revealed a pleasant appearing male who is alert cooperative no apparent distress. Neurologic exam demonstrates no facial droop. Equal motor strength is noted in the upper and lower extremities. Neck is supple and bilateral carotid bruits are noted. Heart was regular without murmur. Lungs were clear to auscultation bilaterally. Abdomen was soft and otherwise benign. Review of CTA demonstrates a totally occluded right ICA and hemodynamically severe stenosis involving the left ICA. Recommendation: I agree with presently instituted medical therapy. I taken the liberty of ordering a carotid duplex study. The patient can be followed either by Dr. De Jesus upon his return or in our office. We discussed carotid endarterectomy versus trans-carotid arterial revascularization (TC AR). Thank you for allowing me to platysma and care of your patient. I trust this consultation is useful to you. Past Medical History Past Medical History: Cancer, CVA/TIA, Eye Disorder, GERD/Reflux, Hyperlipidemia, Osteoarthritis (OA) Additional Past Medical History / Comment(s): 04/2018 TIA-experienced R eye vision change and L arm numbness/some mental changes, prostate cancer with surgery, arthritis in shoulders/back, constipation. History of Any Multi-Drug Resistant Organisms: None Reported Past Surgical History: Hernia Repair, Prostate Surgery Additional Past Surgical History / Comment(s): Bilateral inguinal hernia repai rs, prostatectomy, colonoscopy, SANDRINE, Loop recorder Past Anesthesia/Blood Transfusion Reactions: No Reported Reaction Smoking Status: Former smoker - Past Family History Mother Family Medical History: Cancer Additional Family Medical History / Comment(s): multiple myeloma Father Family Medical History: Cancer Additional Family Medical History / Comment(s): Lymphoma Brother(s) Family Medical History: Cancer Additional Family Medical History / Comment(s): Hodgkins or nonhodgkins lymphoma Medications and Allergies Home Medications Medication Instructions Recorded Confirmed Type Acetaminophen Tab [Tylenol Tab] 325 - 650 mg PO Q6H PRN 03/25/17 11/03/19 History Ibuprofen [Motrin] 200 - 400 mg PO Q6HR PRN 03/25/17 11/03/19 History Aspirin 325 mg PO DAILY 07/28/18 11/03/19 History Metoprolol Succinate (ER) [Toprol 12.5 mg PO DAILY 11/03/19 11/03/19 History Xl] Multivit-Min/FA/Lycopen/Lutein 1 tab PO DAILY 11/03/19 11/03/19 History [Centrum Silver Men Tablet] Omeprazole Magnesium [PriLOSEC OTC] 20 mg PO DAILY 11/03/19 11/03/19 History Rosuvastatin Calcium 20 mg PO HS 11/03/19 11/03/19 History Allergies Allergy/AdvReac Type Severity Reaction Status Date / Time No Known Allergies Allergy Verified 11/03/19 11:55 Surgical - Exam Osteopathic Statement: *. No significant issues noted on an osteopathic structural exam other than those noted in the History and Physical/Consult. Vital Signs Temp Pulse Resp BP Pulse Ox 97.6 F 71 16 166/87 99 11/03/19 10:05 11/03/19 10:05 11/03/19 10:05 11/03/19 10:05 11/03/19 10:05 Results - Labs 11/03/19 10:09 11/03/19 10:09 Abnormal Lab Results - Last 24 Hours (Table) 11/03/19 11/03/19 11/03/19 Range/Units 10:09 10:09 10:09 Chloride 110 H (98-107) mmol/L BUN 22 H (9-20) mg/dL Glucose 107 H (74-99) mg/dL POC Glucose (mg/dL) (75-99) mg/dL Total Creatine Kinase 53 L (55-170) U/L Triglycerides 218 H (<150) mg/dL 11/03/19 Range/Units 10:14 Chloride (98-107) mmol/L BUN (9-20) mg/dL Glucose (74-99) mg/dL POC Glucose (mg/dL) 107 H (75-99) mg/dL Total Creatine Kinase (55-170) U/L Triglycerides (<150) mg/dL Diabetes panel 11/03/19 11/03/19 Range/Units 10:09 10:09 Sodium 142 (137-145) mmol/L Potassium 4.4 (3.5-5.1) mmol/L Chloride 110 H (98-107) mmol/L Carbon Dioxide 24 (22-30) mmol/L BUN 22 H (9-20) mg/dL Creatinine 0.98 (0.66-1.25) mg/dL Glucose 107 H (74-99) mg/dL Calcium 9.7 (8.4-10.2) mg/dL AST 23 (17-59) U/L ALT 13 (4-49) U/L Alkaline Phosphatase 73 (38-126) U/L Total Protein 7.3 (6.3-8.2) g/dL Albumin 4.3 (3.5-5.0) g/dL Triglycerides 218 H (<150) mg/dL HDL Cholesterol 46 (40-60) mg/dL Calcium panel 11/03/19 Range/Units 10:09 Calcium 9.7 (8.4-10.2) mg/dL Albumin 4.3 (3.5-5.0) g/dL Pituitary panel 11/03/19 Range/Units 10:09 Sodium 142 (137-145) mmol/L Potassium 4.4 (3.5-5.1) mmol/L Chloride 110 H (98-107) mmol/L Carbon Dioxide 24 (22-30) mmol/L BUN 22 H (9-20) mg/dL Creatinine 0.98 (0.66-1.25) mg/dL Glucose 107 H (74-99) mg/dL Calcium 9.7 (8.4-10.2) mg/dL Adrenal panel 11/03/19 Range/Units 10:09 Sodium 142 (137-145) mmol/L Potassium 4.4 (3.5-5.1) mmol/L Chloride 110 H (98-107) mmol/L Carbon Dioxide 24 (22-30) mmol/L BUN 22 H (9-20) mg/dL Creatinine 0.98 (0.66-1.25) mg/dL Glucose 107 H (74-99) mg/dL Calcium 9.7 (8.4-10.2) mg/dL Total Bilirubin 0.7 (0.2-1.3) mg/dL AST 23 (17-59) U/L ALT 13 (4-49) U/L Alkaline Phosphatase 73 (38-126) U/L Total Protein 7.3 (6.3-8.2) g/dL Albumin 4.3 (3.5-5.0) g/dL
[2019-11-03] MEDS: BRIMONIDINE TARTRATE 0.2% DROPS 5 ML BTL RIGHT EYE SCH (20:30)
[2019-11-03] MEDS: HEPARIN SODIUM,PORCINE 5,000 UNIT/ML 1 ML VIAL SQ SCH (20:30)
[2019-11-03] MEDS: FAMOTIDINE 20 MG/2 ML VIAL IV SCH (20:30)
--- NOTE | 2019-11-03 21:40 | P.CON ---
Consult Note - . Consult date: 11/03/19 Assessment/Plan:: HPI: This is a74 y/o male with known onset of vision loss starting this AM ~ 0700hrs. He initially noted a greying of the vision which had become noticeably worse to the point there is no appreciable vision. About 4 hours later he pres ented himself to the ER for further assessment. The vision since that time has not improved, however, he states there is perhaps a slight improvement in peripheral vision, but nothing is improved straight ahead. Previously, he has noted a single amaurotic episode which resolved in a short period of time. He discussed this with the pacu rn about a year and a half ago. There was no dilated examination performed. He, however, underwent carotid Doppler's and it was determined that the right carotid was 100% blocked and the left fairly normal with only 30% compromise. He has continued to be followed regularly with his vascular surgeon Dr. De Jesus. Today's episode was totally unaccompanied by any other neurological symptoms of weakness, loss of sensation, speech or other neuropathies. He denies any symptoms of PMR or GCA which could be implicated in this type of symptom. He has completed CT with contrast as well as a vascular assessment, none of which identify any gross abnormalities posterior to the globe. He he no prior history of glaucoma, macular degeneration, or previous surgery on either eye. He has known for some time, he is developing some cataract, which is not affecting ADL's. He last was his pacu rn about a year ago for an update in glasses, and again no known identifying problems were noted. PMH: is well noted and not needed to be repeated here. Meds: in chart. PE: Va w/ correction CF 2' OD, 20/20 OS; IOP: 11 mm Hg OD; 13 mm Hg OS @ 1814 Ext: normal, no noted facial weakness, no eyelid ptosis, normal CN II-V functions. EOM: normal ductions, perhaps poor versions, with a 5 exotropia on the right, cannot converge on nose CF: restricted on the right, full OS Pupils: +Rt APD, no APD noted left, 4/3/2 OD; 4/2/3 OS Conj: Normal white & clear,OU Cornea: clear, OU AC: D&Q, OU Iris: nila, normal, OU Dilated with 2% george & 1% tropicamide, OU @ 1815 Lens: 1+ NS, 1+ CS, OU Vit: PVD, OU ONH: sl pallor, OD, pink, OD: C:D 0.30, OU Retina: mild NFL swelling and whitening, and early ash red spot OD, OS normal FLR Vascular: 0.70 with mild arteriolar narrowing, no appreciable box-carring in macular area; OS 0.70: no noted Hollenhorsts either eye Peripheral: intact, no RD A: 1) CRAO OD, normal ESR, no symptoms of GCA or PMR, therefore, not likely 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 Suspect vision recovery in right eye to be unlikely, especially after time evolved since onset. Left eye at risk of similar event, and is being worked up for left carotid compromise, and if not done recently a repeat echocardiogram as well. 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 Will begin brimonidine 0.2% immediately to reduce effect of apoptosis in affected eye. P: Thank you for this consult and will follow while in the hospital. recommend pursuit of underlying etiology, and follow up in ophthalmology office on discharge.
[2019-11-03 23:51] LABS: Hemoglobin A1C 5.3 % (4.0-6.0)
[2019-11-04] MEDS: BRIMONIDINE TARTRATE 0.2% DROPS 5 ML BTL RIGHT EYE SCH ×3 (03:19→20:25)
[2019-11-04 07:00] LABS: Basophils % (A) 1 %; Eosinophils # (A) 0.1 k/uL (0-0.7); Eosinophils % (A) 2 %; HCT 41.5 % (39.0-53.0); Lymphocytes # (A) 1.6 k/uL (1.0-4.8); Lymphocytes % (A) 25 %; MCH 32.6 pg (25.0-35.0); MCHC 33.8 g/dL (31.0-37.0); MCV 96.6 fL (80.0-100.0); Mean Platelet Volume 9.8; Monocytes # (A) 0.4 k/uL (0-1.0); Monocytes % (A) 6 %; Neutrophils % (A) 64 %; Platelet Count 147 k/uL (150-450); RDW 11.6 % (11.5-15.5); WBC 6.3 k/uL (3.8-10.6)
[2019-11-04 07:22] LABS: African American GFR (CKD) >90 (>60 ml/min/1.73 sqM); Anion Gap 6 mmol/L; Blood Urea Nitrogen 16 mg/dL (9-20); Calcium 9.4 mg/dL (8.4-10.2); Carbon Dioxide 26 mmol/L (22-30); Chloride 110 mmol/L (98-107); Cholesterol 171 mg/dL (<200); Glucose 109 mg/dL (74-99); HDL Cholesterol 47 mg/dL (40-60); LDL Cholesterol,Calculated 88 mg/dL (0-99); Non-African American GFR(CKD) 85 (>60 ml/min/1.73 sqM); Potassium 4.2 mmol/L (3.5-5.1); Sodium 142 mmol/L (137-145); Triglycerides 178 mg/dL (<150)
[2019-11-04] MEDS: FAMOTIDINE 20 MG/2 ML VIAL IV SCH ×2 (09:35→20:24)
[2019-11-04] MEDS: HEPARIN SODIUM,PORCINE 5,000 UNIT/ML 1 ML VIAL SQ SCH ×2 (09:35→20:24)
[2019-11-04] MEDS: CLOPIDOGREL 75 MG TAB PO SCH (09:35)
[2019-11-04] MEDS: METOPROLOL SUCCINATE (ER) 25 MG TAB.ER.24H PO SCH (09:35)
[2019-11-04] MEDS: ASPIRIN 325 MG TAB PO SCH (09:36)
--- NOTE | 2019-11-04 09:40 | P.PN ---
Subjective This is a pleasant 74 years old male with past medical history of CVA/TIA, GERD, hyperlipidemia, osteoarthritis, prostate cancer status post surgery, constipation. Presents with sudden loss patient in the right eye. Patient woke up with loss of vision in his right eye, without any associated symptoms, no weakness in arms or limbs, no headache, no abnormal sensation, no difficulty swallowing. As time goes on his septic and in some vision in his right eye but this blurry and double vision. Of note the patient says about 2 years ago he has TIA with a similar I problem. At that time he saw Dr. Estrada the lamp shades supervisor for loop recorder which was uneventful. Patient at home was taking aspirin 325 mg daily but not Plavix Vital signs stable, blood pressure on the high side currently 175/81. Labs including CBC, BMP, INR, liver enzymes were unremarkable. Troponin is negative. EKG showing normal sinus rhythm at [address]-T changes. CT of the head: No acute process like hemorrhage or mass or deviation. CTA of the head and neck showing occlusion of the right ICA and high-grade stenosis of the proximal left ICA estimated to be 90%. As per emergency room team vascular surgeon has been consulted and they recommended to admit the patient to my clinic in hospital under medical service and they will be on consult. On a dmission patient was started on aspirin 325 mg and Plavix 300 mg once. Also he was given normal saline bolus 500 mL 11/04/2019 Patient is still complaining of from blurred vision in his right eye. Vitals are stable. Labs reviewed with no concerns. No other focal deficit. No chest pain or dyspnea. Patient is been evaluated by several consultants including neurologist, speech communication professor and vascular surgeon. Patient is recommended to continue with medical therapy for his vascular disease and he will not follow up as an outpatient either for carotid endarterectomy or artery revascularization surgery patient is made aware of these recommendation. Private Duty Rn recommended follow-up with their service, he was started on brimonidine eyedrops. Hemoglobin A1c is 5.1%, lipid profile showing mild elevated and triglycerides at 178, while ESR and C-reactive proteins are not elevated. [place] is positive Review of systems: CONSTITUTIONAL: No fever, no malaise, no fatigue. HEENT: No recent visual problems or hearing problems. Denied any sore throat. CARDIOVASCULAR: No orthopnea, PND, no palpitations, no syncope. PULMONARY: No shortness of breath, no cough, no hemoptysis. GASTROINTESTINAL: No diarrhea, no nausea, no vomiting, no abdominal pain. Normoactive bowel sounds. NEUROLOGICAL: No headaches, no weakness, no numbness. HEMATOLOGICAL: Denies any bleeding or petechiae. GENITOURINARY: Denies any burning micturition, frequency, or urgency. MUSCULOSKELETAL/RHEUMATOLOGICAL: Denies any joint pain, swelling, or any muscle pain. ENDOCRINE: Denies any polyuria or polydipsia. Active Medications Generic Name Dose Route Start Last Admin Trade Name Freq PRN Reason Stop Dose Admin Acetaminophen 325 mg 11/03/19 13:58 Tylenol Tab PO Q6H PRN Pain Artificial Tears 1 drops 11/03/19 17:06 Artificial Tear Drops BOTH EYES QID PRN Dry Eye(s) Aspirin 325 mg 11/04/19 09:00 Aspirin PO DAILY [facility] Brimonidine Tartrate 1 drops 11/03/19 20:00 11/04/19 03:19 Alphagan P 0.2% Ophth Soln RIGHT EYE 1 drops Q8H ROLANDO Administration Clopidogrel Bisulfate 75 mg 11/04/19 09:00 Plavix PO DAILY [facility] Famotidine 20 mg 11/03/19 21:00 11/03/19 20:30 Pepcid IV 20 mg Q12HR ROLANDO Administration Heparin Sodium (Porcine) 5,000 unit 11/03/19 21:00 11/03/19 20:30 Heparin SQ 5,000 unit Q12HR ROLANDO Administration Metoprolol Succinate 12.5 mg 11/04/19 09:00 Toprol Xl PO DAILY [facility] Objective - Vital Signs Vital signs: Vital Signs Temp 98.3 F 11/04/19 03:00 Pulse 77 11/04/19 03:00 Resp 18 11/04/19 03:00 BP 125/73 11/04/19 03:00 Pulse Ox 98 11/04/19 03:00 Intake & Output 11/03/19 11/04/19 11/04/19 18:59 06:59 18:59 Intake Total 420 230 Balance 420 230 Weight 81.647 kg 76.204 kg Intake: Oral 420 230 Other: Voiding Method Toilet Toilet # Voids 1 1 1 - Labs CBC & Chem 7: 11/04/19 06:25 11/04/19 06:25 Labs: Abnormal Lab Results - Last 24 Hours (Table) 11/03/19 11/03/19 11/03/19 Range/Units 10:09 10:09 10:09 Plt Count (150-450) k/uL Chloride 110 H (98-107) mmol/L BUN 22 H (9-20) mg/dL Glucose 107 H (74-99) mg/dL POC Glucose (mg/dL) (75-99) mg/dL Total Creatine Kinase 53 L (55-170) U/L Triglycerides 218 H (<150) mg/dL [place] Screen (NEGATIVE) 11/03/19 11/03/19 11/04/19 Range/Units 10:09 10:14 06:25 Plt Count (150-450) k/uL Chloride 110 H (98-107) mmol/L BUN (9-20) mg/dL Glucose 109 H (74-99) mg/dL POC Glucose (mg/dL) 107 H (75-99) mg/dL Total Creatine Kinase (55-170) U/L Triglycerides 178 H (<150) mg/dL [place] Screen POSITIVE H (NEGATIVE) 11/04/19 Range/Units 06:25 Plt Count 147 L (150-450) k/uL Chloride (98-107) mmol/L BUN (9-20) mg/dL Glucose (74-99) mg/dL POC Glucose (mg/dL) (75-99) mg/dL Total Creatine Kinase (55-170) U/L Triglycerides (<150) mg/dL [place] Screen (NEGATIVE) Assessment and Plan Assessment: Loss of right eye vision mostly related to acute stroke, associated with double/blurred vision Bilateral carotid artery disease, total occlusion of the right ICA and 90% stenosis of the left ICA Hyperlipidemia GERD History of prostate cancer status post surgery Constipation History of TIA/CVA Plan: This is a pleasant 74 years old male who presents with loss of vision in the right eye and acute stroke. Consult neurology and vascular surgery for his car otid artery stenosis/occlusion. He knew with aspirin and Plavix. Continue with recommendation by CONSULTANTS, including speech communication professor, neurologist and vascular surgeon Labs and medication were reviewed.. Continue same treatment. Continue with symptomatic treatment. Resume home medication. Monitor lytes and vitals. DVT and GI prophylaxis. Further recommendations of the clinical course of the patient DVT prophylaxis: Subcutaneous heparin GI Prophylaxis: Pepcid PT/OT: Pending Prognosis is guarded
--- NOTE | 2019-11-04 11:14 | P.PN ---
Subjective Progress Note Date: 11/04/19 Principal diagnosis: CRAO OD This is a 74 y/o male with acute onset of vision loss in the right eye, since yesterday. He is not appreciating any improvement in vision today, however, does note that peripheral vision may be somewhat better. He has been on brimonidine since last evening and is tolerating well at this time. he is undergoing further assessment for the underlying atherosclerotic problems which may be the confounding factor for this acute problem. Va: w/ correction CF 2' OD; 20/20 OS CF: normal OS, some constriction OD. Pupils: +APD OD EOM: full ductions Cornea & AC: unremarkable OU Posterior pole: Optic nerve OD, mild pallor?, no gross changes, perhaps a mild ash red spot, no hemorrhages; OS unremarkable A: CRAO OD - unimproved, and likely to remain with limited central vision. Peripheral vision needs to be assessed with visual aguirre. Moderate risk for 90- day glaucoma, and needs routine ophthalmological follow up, especially in the near-term. No immediate concerns about left eye at this time. Underlying systemic problem being worked. P: Continue to monitor while in-house, continue with brimonidine 3 times daily. Objective - Vital Signs Vital signs: Vital Signs Temp 97.7 F 11/04/19 08:00 Pulse 67 11/04/19 08:00 Resp 18 11/04/19 08:00 BP 145/85 11/04/19 08:00 Pulse Ox 98 11/04/19 03:00 Intake & Output 11/03/19 11/04/19 11/04/19 18:59 06:59 18:59 Intake Total 420 230 Balance 420 230 Weight 81.647 kg 76.204 kg Intake: Oral 420 230 Other: Voiding Method Toilet Toilet Toilet # Voids 1 1 1 - Labs CBC & Chem 7: 11/04/19 06:25 11/04/19 06:25 Labs: Abnormal Lab Results - Last 24 Hours (Table) 11/03/19 11/03/19 11/04/19 Range/Units 10:09 10:09 06:25 Plt Count (150-450) k/uL Chloride 110 H (98-107) mmol/L Glucose 109 H (74-99) mg/dL Triglycerides 218 H 178 H (<150) mg/dL [place] Screen POSITIVE H (NEGATIVE) 11/04/19 Range/Units 06:25 Plt Count 147 L (150-450) k/uL Chloride (98-107) mmol/L Glucose (74-99) mg/dL Triglycerides (<150) mg/dL [place] Screen (NEGATIVE)
[2019-11-04] MEDS: amLODIPine 5 MG TAB PO SCH (23:21)
[2019-11-05] MEDS: BRIMONIDINE TARTRATE 0.2% DROPS 5 ML BTL RIGHT EYE SCH ×3 (04:08→20:19)
[2019-11-05 07:22] LABS: Basophils % (A) 1 %; Eosinophils # (A) 0.1 k/uL (0-0.7); Eosinophils % (A) 2 %; HCT 42.1 % (39.0-53.0); HGB 14.1 gm/dL (13.0-17.5); Lymphocytes # (A) 1.6 k/uL (1.0-4.8); Lymphocytes % (A) 24 %; MCH 32.2 pg (25.0-35.0); MCHC 33.6 g/dL (31.0-37.0); MCV 95.8 fL (80.0-100.0); Mean Platelet Volume 9.5; Monocytes # (A) 0.4 k/uL (0-1.0); Monocytes % (A) 6 %; Neutrophils # (A) 4.5 k/uL (1.3-7.7); Neutrophils % (A) 65 %; Platelet Count 150 k/uL (150-450); RDW 11.8 % (11.5-15.5); WBC 6.8 k/uL (3.8-10.6)
[2019-11-05 07:46] LABS: Calcium 9.5 mg/dL (8.4-10.2); Potassium 4.4 mmol/L (3.5-5.1)
[2019-11-05] MEDS: amLODIPine 5 MG TAB PO SCH (08:25)
[2019-11-05] MEDS: CLOPIDOGREL 75 MG TAB PO SCH (08:25)
[2019-11-05] MEDS: ASPIRIN 325 MG TAB PO SCH (08:25)
[2019-11-05] MEDS: METOPROLOL SUCCINATE (ER) 25 MG TAB.ER.24H PO SCH (08:25)
[2019-11-05] MEDS: FAMOTIDINE 20 MG/2 ML VIAL IV SCH ×2 (08:25→20:18)
[2019-11-05] MEDS: HEPARIN SODIUM,PORCINE 5,000 UNIT/ML 1 ML VIAL SQ SCH ×2 (08:26→20:18)
--- NOTE | 2019-11-05 10:57 | P.PN ---
Subjective This is a pleasant 74 years old male with past medical history of CVA/TIA, GERD, hyperlipidemia, osteoarthritis, prostate cancer status post surgery, constipation. Presents with sudden loss patient in the right eye. Patient woke up with loss of vision in his right eye, without any associated symptoms, no weakness in arms or limbs, no headache, no abnormal sensation, no difficulty swallowing. As time goes on his septic and in some vision in his right eye but this blurry and double vision. Of note the patient says about 2 years ago he has TIA with a similar I problem. At that time he saw Dr. Estrada the electrical equipment technician for loop recorder which was uneventful. Patient at home was taking aspirin 325 mg daily but not Plavix Vital signs stable, blood pressure on the high side currently 175/81. Labs including CBC, BMP, INR, liver enzymes were unremarkable. Troponin is negative. EKG showing normal sinus rhythm at [address]-T changes. CT of the head: No acute process like hemorrhage or mass or deviation. CTA of the head and neck showing occlusion of the right ICA and high-grade stenosis of the proximal left ICA estimated to be 90%. As per emergency room team vascular surgeon has been consulted and they recommended to admit the patient to my clinic in hospital under medical service and they will be on consult. On a dmission patient was started on aspirin 325 mg and Plavix 300 mg once. Also he was given normal saline bolus 500 mL 11/04/2019 Patient is still complaining of from blurred vision in his right eye. Vitals are stable. Labs reviewed with no concerns. No other focal deficit. No chest pain or dyspnea. Patient is been evaluated by several consultants including neurologist, dip guider stoves and vascular surgeon. Patient is recommended to continue with medical therapy for his vascular disease and he will not follow up as an outpatient either for carotid endarterectomy or artery revascularization surgery patient is made aware of these recommendation. Developmental Training Counselor recommended follow-up with their service, he was started on brimonidine eyedrops. Hemoglobin A1c is 5.1%, lipid profile showing mild elevated and triglycerides at 178, while ESR and C-reactive proteins are not elevated. [place] is positive 11/05/2019 Patient have mild improvement in his right patient since yesterday, it is still a blurry. Ophthalmology R following the patient and the recommend outpatient follow-up as well. [place] is positive pending neurological further evaluation and clearance. We'll order carotid duplex upon surgical recommendation Objective - Vital Signs Vital signs: Vital Signs Temp 98.2 F 11/05/19 08:24 Pulse 76 11/05/19 08:24 Resp 18 11/05/19 08:24 BP 126/79 11/05/19 08:24 Pulse Ox 99 11/05/19 08:24 Intake & Output 11/04/19 11/05/19 11/05/19 18:59 06:59 18:59 Intake Total 790 200 Output Total 600 Balance 790 -400 Weight 76.2 kg Intake: IV 40 Invasive Line 1 40 Oral 750 200 Output: Urine 600 Other: Voiding Method Toilet Toilet Toilet # Voids 2 1 - Exam GENERAL: The patient is alert and oriented x3, not in any acute distress. Well developed, well nourished. HEENT: Pupils are round and equally reacting to light. EOMI. No scleral icterus. No conjunctival pallor. Normocephalic, atraumatic. No pharyngeal erythema. No thyromegaly. CARDIOVASCULAR: S1 and S2 present. No murmurs, rubs, or gallops. PULMONARY: Chest is clear to auscultation, no wheezing or crackles. ABDOMEN: Soft, nontender, nondistended, normoactive bowel sounds. No palpable organomegaly. MUSCULOSKELETAL: No joint swelling or deformity. EXTREMITIES: No cyanosis, clubbing, or pedal edema. -NEUROLOGICAL: Right eye with blurred vision, Gross neurological examination did not reveal any focal deficits. SKIN: No rashes. no petechiae. - Labs CBC & Chem 7: 11/05/19 06:24 11/05/19 06:24 Labs: Abnormal Lab Results - Last 24 Hours (Table) 11/05/19 Range/Units 06:24 Chloride 108 H (98-107) mmol/L Glucose 101 H (74-99) mg/dL Assessment and Plan Assessment: Loss of right eye vision mostly related to acute stroke, associated with double/blurred vision Bilateral carotid artery disease, total occlusion of the right ICA and 90% stenosis of the left ICA Hyperlipidemia GERD History of prostate cancer status post surgery Constipation History of TIA/CVA Plan: This is a pleasant 74 years old male who presents with loss of vision in the right eye and acute stroke. Consult neurology and vascular surgery for his carotid artery stenosis/occlusion. He knew with aspirin and Plavix. Continue with recommendation by CONSULTANTS, including dip guider stoves, neurologist and vascular surgeon. Check carotid duplex Labs and medication were reviewed.. Continue same treatment. Continue with symptomatic treatment. Resume home medication. Monitor lytes and vitals. DVT and GI prophylaxis. Further recommendations of the clinical course of the patient DVT prophylaxis: Subcutaneous heparin GI Prophylaxis: Pepcid PT/OT: Pending Prognosis is guarded
--- NOTE | 2019-11-05 11:56 | P.PN ---
Subjective Progress Note Date: 11/05/19 Principal diagnosis: CRAO OD This is a 74 y/o male with acute onset of vision loss in the right eye, since yesterday. He is not appreciating any improvement in vision today, however, does note that peripheral vision may be somewhat better. He has been on brimonidine since last evening and is tolerating well at this time. he is undergoing further assessment for the underlying atherosclerotic problems which may be the confounding factor for this acute problem. Va: w/ correction CF 4' OD; 20/20 OS IOP: 8 mm Hg OD, 12 mm Hg, OS CF: normal OS, some constriction OD. Pupils: +APD OD EOM: full ductions Cornea & AC: unremarkable OU Posterior pole: Optic nerve OD, mild pallor?, no gross changes, perhaps a mild ash red spot, no hemorrhages; OS unremarkable A: CRAO OD - unimproved, and likely to remain with limited central vision. Peripheral vision needs to be assessed with visual aguirre. Moderate risk for 90- day glaucoma, and needs routine ophthalmological follow up, especially in the near-term. No immediate concerns about left eye at this time. Underlying systemic problem being worked. P: Continue to monitor while in-house, continue with brimonidine 3 times daily. When discharged would like to see patient in office within the week. no change in eye treatment at this time. Objective - Vital Signs Vital signs: Vital Signs Temp 98.2 F 11/05/19 08:24 Pulse 76 11/05/19 08:24 Resp 18 11/05/19 08:24 BP 126/79 11/05/19 08:24 Pulse Ox 99 11/05/19 08:24 Intake & Output 11/04/19 11/05/19 11/05/19 18:59 06:59 18:59 Intake Total 790 200 Output Total 600 Balance 790 -400 Weight 76.2 kg Intake: IV 40 Invasive Line 1 40 Oral 750 200 Output: Urine 600 Other: Voiding Method Toilet Toilet Toilet # Voids 2 1 - Labs CBC & Chem 7: 11/05/19 06:24 11/05/19 06:24 Labs: Abnormal Lab Results - Last 24 Hours (Table) 11/05/19 Range/Units 06:24 Chloride 108 H (98-107) mmol/L Glucose 101 H (74-99) mg/dL
--- NOTE | 2019-11-05 15:13 | US ---
EXAMINATION TYPE: US carotid duplex BILAT DATE OF EXAM: 11/05/2019 COMPARISON: CT 2019, US 2018 06/30/2018 CLINICAL HISTORY: REPEAT STUDY. Stenosis, known right ICA occlusion, exam done portable. EXAM MEASUREMENTS: RIGHT: Peak Systolic Velocity (PSV) cm/sec ----- Right CCA: 67.1 ----- Right ICA: occluded ----- Right ECA: 188.2 ICA/CCA ratio: RIGHT: End Diastole cm/sec ----- Right CCA: 0.0 ----- Right ICA: occluded ----- Right ECA: 11.6 LEFT: Peak Systolic Velocity (PSV) cm/sec ----- Left CCA: 64.2 ----- Left ICA: 252.6 ----- Left ECA: 174.8 ICA/CCA ratio: 3.9 LEFT: End Diastole cm/sec ----- Left CCA: 16.2 ----- Left ICA: 92.4 ----- Left ECA: 10.0 VERTEBRALS (direction of flow): Right Vertebral: Antegrade Left Vertebral: Antegrade Rhythm: Normal Occluded right ICA, elevated velocities: right prox ECA, left prox mid and distal ICA and left prox E CA, left ICA/CCA ratio 3.9 IMPRESSION: There is complete occlusion of the right internal carotid artery. There is elevated velocities left i nternal carotid artery consistent with more than 70% stenosis. There is increased velocity left internal carotid artery compared to old exam and suggestive of progr ession of disease. There is antegrade flow in both vertebral arteries. Criteria for Assigning % of Stenosis / Diameter reduction (Estimation based on the indirect measurements of the internal carotid artery velocities (ICA PSV). 1. Normal (no stenosis)=ICA PSV < 125 cm/s: ratio < 2.0: ICA EDV<40 cm/s. 2. Less than 50% stenosis=ICA PSV < 125 cm/s: ratio < 2.0: ICA EDV<40 cm/s. 3. 50 to 69% stenosis=ICA PSV of 125 to 230 cm/s: ration 2.0 ? 4.0: ICA EDV 40-100 cm/s. 4. Greater than 70% stenosis to near occlusion= ICA PSV > 230 cm/s: ratio > 4.0: ICA EDV > 100 cm/s. 5. Near occlusion= ICA PSV velocities may be low or undetectable: variable ratio and ICA EDV. 6. Total occlusion=unable to detect flow.
[2019-11-06] MEDS: BRIMONIDINE TARTRATE 0.2% DROPS 5 ML BTL RIGHT EYE SCH ×3 (03:42→20:17)
[2019-11-06] MEDS: amLODIPine 5 MG TAB PO SCH (08:07)
[2019-11-06] MEDS: HEPARIN SODIUM,PORCINE 5,000 UNIT/ML 1 ML VIAL SQ SCH ×2 (08:07→20:18)
[2019-11-06] MEDS: ASPIRIN 325 MG TAB PO SCH (08:07)
[2019-11-06] MEDS: FAMOTIDINE 20 MG/2 ML VIAL IV SCH (08:07)
[2019-11-06] MEDS: METOPROLOL SUCCINATE (ER) 25 MG TAB.ER.24H PO SCH (08:07)
[2019-11-06] MEDS: CLOPIDOGREL 75 MG TAB PO SCH (08:07)
--- NOTE | 2019-11-06 11:28 | P.PN ---
Subjective This is a pleasant 74 years old male with past medical history of CVA/TIA, GERD, hyperlipidemia, osteoarthritis, prostate cancer status post surgery, constipation. Presents with sudden loss patient in the right eye. Patient woke up with loss of vision in his right eye, without any associated symptoms, no weakness in arms or limbs, no headache, no abnormal sensation, no difficulty swallowing. As time goes on his septic and in some vision in his right eye but this blurry and double vision. Of note the patient says about 2 years ago he has TIA with a similar I problem. At that time he saw Dr. Estrada the armature winder repair for loop recorder which was uneventful. Patient at home was taking aspirin 325 mg daily but not Plavix Vital signs stable, blood pressure on the high side currently 175/81. Labs including CBC, BMP, INR, liver enzymes were unremarkable. Troponin is negative. EKG showing normal sinus rhythm at [address]-T changes. CT of the head: No acute process like hemorrhage or mass or deviation. CTA of the head and neck showing occlusion of the right ICA and high-grade stenosis of the proximal left ICA estimated to be 90%. As per emergency room team vascular surgeon has been consulted and they recommended to admit the patient to my clinic in hospital under medical service and they will be on consult. On a dmission patient was started on aspirin 325 mg and Plavix 300 mg once. Also he was given normal saline bolus 500 mL 11/04/2019 Patient is still complaining of from blurred vision in his right eye. Vitals are stable. Labs reviewed with no concerns. No other focal deficit. No chest pain or dyspnea. Patient is been evaluated by several consultants including neurologist, paint stockman and vascular surgeon. Patient is recommended to continue with medical therapy for his vascular disease and he will not follow up as an outpatient either for carotid endarterectomy or artery revascularization surgery patient is made aware of these recommendation. Director Child recommended follow-up with their service, he was started on brimonidine eyedrops. Hemoglobin A1c is 5.1%, lipid profile showing mild elevated and triglycerides at 178, while ESR and C-reactive proteins are not elevated. [place] is positive 11/05/2019 Patient have mild improvement in his right patient since yesterday, it is still a blurry. Ophthalmology R following the patient and the recommend outpatient follow-up as well. [place] is positive pending neurological further evaluation and clearance. We'll order carotid duplex upon surgical recommendation 11/06/2019 Patient clinically the same with no worsening or improvement in his right eye, no effect on his left eye which is at baseline. No other neurological deficit. Carotid duplex showing 100% occlusion on the right side and 70 % stenosis of the left side. Following the patient closely by ophthalmology as well. Patient and at bedside and aware of the recommendation by close ophthalmology as an outpatient in one week, and with neurologist as an outpatient and vascular surgeon also in 1-2 weeks and stated she will call and make appointments. Unfortunately there is no neurological service today. Patient will need neurological clearance prior to discharge especially with positive [place] Objective - Vital Signs Vital signs: Vital Signs Temp 98.2 F 11/06/19 08:05 Pulse 74 11/06/19 08:05 Resp 18 11/06/19 08:05 BP 119/79 11/06/19 08:05 Pulse Ox 98 11/06/19 08:05 Intake & Output 11/05/19 11/06/19 11/06/19 18:59 06:59 18:59 Intake Total 1260 210 Output Total 600 Balance 660 210 Weight 76.1 kg Intake: IV 10 Invasive Line 1 10 Oral 1260 200 Output: Urine 600 Other: Voiding Method Toilet Toilet Toilet # Voids 1 - Exam GENERAL: The patient is alert and oriented x3, not in any acute distress. Well developed, well nourished. HEENT: Pupils are round and equally reacting to light. EOMI. No scleral icterus. No conjunctival pallor. Normocephalic, atraumatic. No pharyngeal erythema. No thyromegaly. CARDIOVASCULAR: S1 and S2 present. No murmurs, rubs, or gallops. PULMONARY: Chest is clear to auscultation, no wheezing or crackles. ABDOMEN: Soft, nontender, nondistended, normoactive bowel sounds. No palpable organomegaly. MUSCULOSKELETAL: No joint swelling or deformity. EXTREMITIES: No cyanosis, clubbing, or pedal edema. -NEUROLOGICAL: Right eye with blurred vision, Gross neurological examination did not reveal any focal deficits. SKIN: No rashes. no petechiae. - Labs CBC & Chem 7: 11/05/19 06:24 11/05/19 06:24 Assessment and Plan Assessment: Loss of right eye vision mostly related to acute stroke, associated with double/blurred vision Bilateral carotid artery disease, total occlusion of the right ICA and 90% stenosis of the left ICA Hyperlipidemia GERD History of prostate cancer status post surgery Constipation History of TIA/CVA Plan: This is a pleasant 74 years old male who presents with loss of vision in the rig ht eye and acute stroke. Consult neurology and vascular surgery for his carotid artery stenosis/occlusion. He knew with aspirin and Plavix. Continue with recommendation by CONSULTANTS, including paint stockman, neurologist and vascular surgeon. Check carotid duplex Labs and medication were reviewed.. Continue same treatment. Continue with symptomatic treatment. Resume home medication. Monitor lytes and vitals. DVT and GI prophylaxis. Further recommendations of the clinical course of the patient DVT prophylaxis: Subcutaneous heparin GI Prophylaxis: Pepcid PT/OT: Pending Prognosis is guarded
--- NOTE | 2019-11-06 13:29 | P.PN ---
Subjective Progress Note Date: 11/06/19 Principal diagnosis: Carotid occlusive disease Patient seen and evaluated today, sitting up in bed in no acute distress. Reported no changes through the night. Patient states he is feeling well and going to be discharged home today. Carotid duplex study shows complete occlusi on of right internal carotid artery. There is elevated velocities left internal carotid artery consistent with more than 70% stenosis. There is increased velocity left internal carotid artery compared to old exam and suggestive of progression of disease. Objective - Vital Signs Vital signs: Vital Signs Temp 98.2 F 11/06/19 08:05 Pulse 74 11/06/19 08:05 Resp 18 11/06/19 08:05 BP 119/79 11/06/19 08:05 Pulse Ox 98 11/06/19 08:05 Intake & Output 11/05/19 11/06/19 11/06/19 18:59 06:59 18:59 Intake Total 1260 210 Output Total 600 Balance 660 210 Weight 76.1 kg Intake: IV 10 Invasive Line 1 10 Oral 1260 200 Output: Urine 600 Other: Voiding Method Toilet Toilet Toilet # Voids 1 - Exam General appearance: The patient is alert, oriented, in no acute distress. HET: Head is normocephalic and atraumatic. Neck: Supple, bilateral carotid bruits noted Heart: S1 S2. Regular rate and rhythm. Lungs: No crackles or wheezes are heard. Extremities: Normal skin color and turgor. No cyanosis, rash, ulceration, clubbing, or edema. Radial and pedal pulses are 2/4 bilaterally. Neurological: No focal deficits. - Labs CBC & Chem 7: 11/05/19 06:24 11/05/19 06:24 Assessment and Plan Assessment: Carotid occlusive disease Plan: Carotid duplex study completed. Patient states he is interested in having the carotid stent placement if further intervention is indicated. Discussed with Dr. Franks. Recommendation is for patient to follow-up with Dr. Zaragoza after discharge to discuss further intervention. The above dictated assessment and findings were discussed with Dr. Franks. The impression and plan of care have been directed as dictated.
[2019-11-06] MEDS: FAMOTIDINE 20 MG TAB PO SCH (20:18)
[2019-11-07] MEDS: BRIMONIDINE TARTRATE 0.2% DROPS 5 ML BTL RIGHT EYE SCH ×3 (04:05→21:03)
[2019-11-07] MEDS: METOPROLOL SUCCINATE (ER) 25 MG TAB.ER.24H PO SCH (08:52)
[2019-11-07] MEDS: amLODIPine 5 MG TAB PO SCH (08:52)
[2019-11-07] MEDS: FAMOTIDINE 20 MG TAB PO SCH ×2 (08:53→21:03)
[2019-11-07] MEDS: CLOPIDOGREL 75 MG TAB PO SCH (08:53)
[2019-11-07] MEDS: HEPARIN SODIUM,PORCINE 5,000 UNIT/ML 1 ML VIAL SQ SCH ×2 (08:53→21:03)
[2019-11-07] MEDS: ASPIRIN 325 MG TAB PO SCH (08:53)
[2019-11-07 11:09] VITALS: RESP 16
[2019-11-07 11:39] LABS: ANA Pattern Centromere
--- NOTE | 2019-11-07 12:38 | P.PN ---
Subjective This is a pleasant 74 years old male with past medical history of CVA/TIA, GERD, hyperlipidemia, osteoarthritis, prostate cancer status post surgery, constipation. Presents with sudden loss patient in the right eye. Patient woke up with loss of vision in his right eye, without any associated symptoms, no weakness in arms or limbs, no headache, no abnormal sensation, no difficulty swallowing. As time goes on his septic and in some vision in his right eye but this blurry and double vision. Of note the patient says about 2 years ago he has TIA with a similar I problem. At that time he saw Dr. Estrada the floor refinisher for loop recorder which was uneventful. Patient at home was taking aspirin 325 mg daily but not Plavix Vital signs stable, blood pressure on the high side currently 175/81. Labs including CBC, BMP, INR, liver enzymes were unremarkable. Troponin is negative. EKG showing normal sinus rhythm at [address]-T changes. CT of the head: No acute process like hemorrhage or mass or deviation. CTA of the head and neck showing occlusion of the right ICA and high-grade stenosis of the proximal left ICA estimated to be 90%. As per emergency room team vascular surgeon has been consulted and they recommended to admit the patient to my clinic in hospital under medical service and they will be on consult. On a dmission patient was started on aspirin 325 mg and Plavix 300 mg once. Also he was given normal saline bolus 500 mL 11/04/2019 Patient is still complaining of from blurred vision in his right eye. Vitals are stable. Labs reviewed with no concerns. No other focal deficit. No chest pain or dyspnea. Patient is been evaluated by several consultants including neurologist, security ambassador and vascular surgeon. Patient is recommended to continue with medical therapy for his vascular disease and he will not follow up as an outpatient either for carotid endarterectomy or artery revascularization surgery patient is made aware of these recommendation. Heating Repair Technician recommended follow-up with their service, he was started on brimonidine eyedrops. Hemoglobin A1c is 5.1%, lipid profile showing mild elevated and triglycerides at 178, while ESR and C-reactive proteins are not elevated. [place] is positive 11/05/2019 Patient have mild improvement in his right patient since yesterday, it is still a blurry. Ophthalmology R following the patient and the recommend outpatient follow-up as well. [place] is positive pending neurological further evaluation and clearance. We'll order carotid duplex upon surgical recommendation 11/06/2019 Patient clinically the same with no worsening or improvement in his right eye, no effect on his left eye which is at baseline. No other neurological deficit. Carotid duplex showing 100% occlusion on the right side and 70 % stenosis of the left side. Following the patient closely by ophthalmology as well. Patient and at bedside and aware of the recommendation by close ophthalmology as an outpatient in one week, and with neurologist as an outpatient and vascular surgeon also in 1-2 weeks and stated she will call and make appointments. Unfortunately there is no neurological service today. Patient will need neurological clearance prior to discharge especially with positive [place] 11/07/2019 Patient clinically stable. There is a still no neurological service in the hospital today as Dr. johansen call sick for the second day. However the patient and at bedside are totally understanding the situation and they are willing to stay in the hospital for monitoring to get cleared by neurology for discharge Objective - Vital Signs Vital signs: Vital Signs Temp 98.0 F 11/07/19 08:35 Pulse 69 11/07/19 08:35 Resp 16 11/07/19 08:35 BP 133/89 11/07/19 08:35 Pulse Ox 99 11/07/19 08:35 Intake & Output 11/06/19 11/07/19 11/07/19 18:59 06:59 18:59 Intake Total 760 240 Balance 760 240 Weight 76.1 kg Intake: IV 40 Invasive Line 1 20 Invasive Line 2 20 Oral 720 240 Other: Voiding Method Toilet Toilet Toilet # Voids 3 1 2 - Exam GENERAL: The patient is alert and oriented x3, not in any acute distress. Well developed, well nourished. HEENT: Pupils are round and equally reacting to light. EOMI. No scleral icterus. No conjunctival pallor. Normocephalic, atraumatic. No pharyngeal erythema. No thyromegaly. CARDIOVASCULAR: S1 and S2 present. No murmurs, rubs, or gallops. PULMONARY: Chest is clear to auscultation, no wheezing or crackles. ABDOMEN: Soft, nontender, nondistended, normoactive bowel sounds. No palpable organomegaly. MUSCULOSKELETAL: No joint swelling or deformity. EXTREMITIES: No cyanosis, clubbing, or pedal edema. -NEUROLOGICAL: Right eye with blurred vision, Gross neurological examination did not reveal any focal deficits. SKIN: No rashes. no petechiae. - Labs CBC & Chem 7: 11/05/19 06:24 11/05/19 06:24 Assessment and Plan Assessment: Loss of right eye vision mostly related to acute stroke, associated with double/blurred vision Bilateral carotid artery disease, total occlusion of the right ICA and 90% stenosis of the left ICA Hyperlipidemia GERD History of prostate cancer status post surgery Constipation History of TIA/CVA Plan: This is a pleasant 74 years old male who presents with loss of vision in the right eye and acute stroke. Consult neurology and vascular surgery for his carotid artery stenosis/occlusion. He knew with aspirin and Plavix. Continue with recommendation by CONSULTANTS, including security ambassador, neurologist and vascular surgeon. Check carotid duplex Labs and medication were reviewed.. Continue same treatment. Continue with symptomatic treatment. Resume home medication. Monitor lytes and vitals. DVT and GI prophylaxis. Further recommendations of the clinical course of the patient DVT prophylaxis: Subcutaneous heparin GI Prophylaxis: Pepcid PT/OT: Pending Prognosis is guarded
--- NOTE | 2019-11-07 12:39 | P.PN ---
Subjective Progress Note Date: 11/07/19 Patient seen and evaluated today with Dr. Zaragoza. Reported no changes through the night. Patient states he is feeling well and going to be discharged home today. Carotid duplex study shows complete occlusion of right internal carotid artery. There is elevated velocities left internal carotid artery consistent with more than 70% stenosis. There is increased velocity left internal carotid artery compared to old exam and suggestive of progression of disease. Objective - Vital Signs Vital signs: Vital Signs Temp 98.0 F 11/07/19 08:35 Pulse 69 11/07/19 08:35 Resp 16 11/07/19 08:35 BP 133/89 11/07/19 08:35 Pulse Ox 99 11/07/19 08:35 Intake & Output 11/06/19 11/07/19 11/07/19 18:59 06:59 18:59 Intake Total 760 240 Balance 760 240 Weight 76.1 kg Intake: IV 40 Invasive Line 1 20 Invasive Line 2 20 Oral 720 240 Other: Voiding Method Toilet Toilet Toilet # Voids 3 1 2 - Exam General appearance: The patient is alert, oriented, in no acute distress. HET: Head is normocephalic and atraumatic. Neck: Supple, bilateral carotid bruits noted Heart: S1 S2. Regular rate and rhythm. Lungs: No crackles or wheezes are heard. Extremities: Normal skin color and turgor. No cyanosis, rash, ulceration, clubbing, or edema. Radial and pedal pulses are 2/4 bilaterally. Neurological: No focal deficits. - Labs CBC & Chem 7: 11/05/19 06:24 11/05/19 06:24 Assessment and Plan Assessment: Carotid occlusive disease Plan: Dr. Zaragoza discussed with patient for planned outpatient TCAR procedure for his left carotid occlusive disease. No indications for any vascular surgical intervention at this time. Patient is to follow-up with Dr. Zaragoza after discharge. The above dictated assessment and findings were discussed with Dr. Zaragoza. The impression and plan of care have been directed as dictated.
[2019-11-07] MEDS ORDERED: ATORVASTATIN 20 MG TAB PO SCH (21:00)
[2019-11-08 05:02] VITALS: TEMP 97.8
[2019-11-08] MEDS: BRIMONIDINE TARTRATE 0.2% DROPS 5 ML BTL RIGHT EYE SCH (05:09)
[2019-11-08] MEDS: HEPARIN SODIUM,PORCINE 5,000 UNIT/ML 1 ML VIAL SQ SCH (09:28)
[2019-11-08] MEDS: METOPROLOL SUCCINATE (ER) 25 MG TAB.ER.24H PO SCH (09:29)
[2019-11-08] MEDS: CLOPIDOGREL 75 MG TAB PO SCH (09:29)
[2019-11-08] MEDS: ASPIRIN 325 MG TAB PO SCH (09:29)
[2019-11-08] MEDS: FAMOTIDINE 20 MG TAB PO SCH (09:29)
[2019-11-08] MEDS: amLODIPine 5 MG TAB PO SCH (09:29)
[2019-11-08 09:33] VITALS: BP 133/77; PULSE 84
[2019-11-09] MEDS ORDERED: ASPIRIN 81 MG PO SCH (09:00)
--- NOTE | 2019-11-09 11:18 | DS ---
DISCHARGE SUMMARY DATE OF SERVICE: 11/08/2019 FINAL DIAGNOSES: 1. Right vision, possible acute stroke. 2. Bilateral carotid artery disease total occlusion of right ICA and 90% stenosis the left ICA. 3. Hyperlipidemia. 4. History of gastroesophageal reflux disease. 5. History of prostate cancer, status post surgery. 6. Constipation. 7. History of transient ischemic attack, cerebrovascular accident. DISCHARGE DISPOSITION: The patient will be discharged in a stable condition with guarded prognosis. HISTORY OF PRESENT ILLNESS: This is a 74-year-old gentleman with a past medical history with multiple medical problems, admitted with loss of vision and features of acute stroke. The patient was monitored closely. Patient is seen by Neurology as well as Vascular Surgery who recommended outpatient followup On exam, vitals are stable. CARDIOVASCULAR: S1, S2. ABDOMEN: Soft. NERVOUS SYSTEM: No focal deficits. DISCHARGE ADVICE: 1. Discharge diet is cardiac diet. 2. Activity limited until followup. 3. Follow up with Zully Lucia in 1-2 days. 4. Follow up with Vascular Surgery. 5. Recommend follow up Dr. Jesus as recommended. 6. Follow up with Dr. Goode, Neurology in 1 week. MEDICATIONS: Will be as follows: 1. Multivitamin 1 p.o. daily. 2. Motrin 200 mg q.6 p.r.n. 3. Magnesium 220 mg p.o. daily. 4. Metoprolol 12.5 mg daily. 5. Tylenol p.r.n. 6. Brimonidine eye drops. 7. Artificial Tears eye drops. 8. Aspirin 81 mg p.o. daily. 9. Lipitor 40 mg q.h.s. 10.Norvasc 5 mg p.o. daily. 11.Plavix 75 mg p.o. daily. MMODL / IJN: [id number] /
--- NOTE | 2019-11-11 10:51 | P.PN ---
Progress Note - Text Progress Note Date: 11/08/19 SUBJECTIVE/INTERVAL EVENTS: No acute overnight events. R vision deficit about the same. He's able to tell shapes but not more than that. PHYSICAL EXAMINATION: VITAL SIGNS: T 97.8 HR 58 RR 16 BP 131/68 O2 sat 98% on RA GEN.: NAD, pleasant and cooperative HEENT: NCAT, sclera without icterus NECK: Supple SKIN AND EXTREMITIES: Warm to touch, no edema NEURO: MENTAL STATUS: Patient alert and oriented to self, place, time. Able to name the current president. Speech fluent, able to name and repeat, following all commands readily. No right and left disorientation, neglect. CRANIAL NERVES II THROUGH XII: II: Pupils are equal and reactive to light symmetrically. R vision intact to shapes only. L vision intact. III, IV, : No ptosis. Extraocular movements full. No nystagmus. V: Facial sensation intact from V1-3. VII. No clear facial asymmetry. VIII: Hearing intact to finger rub bilaterally. IX, X: Symmetric palate elevation. XI: Shoulder shrug intact. XII: Tongue midline without fasciculation or atrophy. MOTOR: Normal bulk/tone. No pronator drift or tremor. Strength is 5/5 throughout all 4 extremities. SENSORY: Intact to light touch in all 4 extremities. REFLEXES: 2+ throughout. Toes are downgoing. COORDINATION: Finger to nose intact. No dysmetria. GAIT: Narrow-based and stable. Able to toe/heel/tandem walk DIAGNOSTICS: Laboratory: ESR 5, CRP <5, [place] positive, hemoglobin A1c 5.3, fasting a.m. lipid panel total cholesterol 171 LDL 88 HDL 47 TG 178 Imaging: Carotid Doppler 11/05/19: Complete occlusion of R ICA. L ICA consistent with more than 70% stenosis. Increased velocity L ICA, suggestive of progression of disease. CT Head w/o contrast 11/03/19: age-related atrophic and chronic small vessel ischemic change without acute intracranial process at this time CTA Head and Neck 11/03/19: R ICA occlusion. High-grade stenosis noted proximal L ICA estimated at 90%. 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 Ophthalmology consulted, likely an embolic phenomenon. Patient has history of similar transient vision loss 2 years ago, but resolved spontaneously. Patient also with chronically occluded right ICA. Severe stenosis of left ICA. Vascular surgery consulted, will consider intervention as outpatient. RECOMMENDATION: - continue with ASA and plavix for 3 months, then plavix only - follow up with vascular surgery as outpatient - follow up with Neurology outpatient within 2-3 weeks of discharge
--- NOTE | 2019-11-13 11:24 | CDI ---
Documentation Clarification Form Date: 11/13/19 From: Faina Gomez Phone: If you have a question about this query, please contact Stephany Baxter, Recooperer at [phone] between 8am and 5pm. Admit Date: 11/03/19 Discharge Date: 11/08/18 Patient Name: Sarath Gibson Visit Number: [id number] ATTENTION: The Clinical Documentation Specialists (CDI) and [facility] Coding Staff appreciate your assistance in clarifying documentation. Please respond to the clarification below the line at the bottom and electronically sign. The CDI & [facility] Coding staff will review the response and follow-up if needed. Please note: Queries are made part of the Legal Health Record. If you have any questions, please contact the author of this message via ITS. Dear Dr. Juanjose Lake, Acute stroke is documented as a diagnosis in the ED Note, H&P, multiple PNs & DS. History/risk factors: CVA/TIA, GERD, hyperlipidemia, OA, prostate CA, constipation, HTN Clinical Indicators: Presents w loss of vision in right eye, wo any associated symptoms, no weakness in limbs, no BROTHERS, no abnormal sensation, no difficulty swallowing. Previous hx of TIA w similiar problem. CT: Age related atrophic and chronic small vessel ischemic change wo acute intracranial process seen at this time. CT Angio Neck: Occlusion right ICA, High-grade stenosis noted proximal left ICA estimated at 90% US Carotids: Occlusion right ICA. There is elevated velocities left ICA consistent w more thatn 70% stenosis. Treatment: Plavix 300 mg po once, Heparin 5000 unit SQ Q12HR Discharge Plan: continue w ASA & Plavix for 3 months, then plavix only, follow- up w vascular surgery and neurology as OP In your professional opinion, please clarify the if stroke due to carotid occlusion: Stroke, not further defined Stroke due to carotid occlusion Other (please specify) Unable to Determine Stroke, not further defined MTDD
== END 2019-11-08 13:46 | disposition home or self-care (01) | DRG 65 ==
LOC: EC 10:01 → 3SCARD 11:54
PROVIDERS: ADMIT Internal Medicine; ATTEND Internal Medicine
DX: I63.9 Cerebral infarction, unspecified (principal); H34.11 Central retinal artery occlusion, right eye; I65.23 Occlusion and stenosis of bilateral carotid arteries; R40.2362 Coma scale, best motor response, obeys commands, at arrival to emergency department; R40.2142 Coma scale, eyes open, spontaneous, at arrival to emergency department; R40.2252 Coma scale, best verbal response, oriented, at arrival to emergency department; R29.701 NIHSS score 1; K21.9 Gastro-esophageal reflux disease without esophagitis; E78.5 Hyperlipidemia, unspecified; I10 Essential (primary) hypertension; M19.90 Unspecified osteoarthritis, unspecified site; K59.00 Constipation, unspecified; H26.9 Unspecified cataract; Z79.82 Long term (current) use of aspirin; Z79.899 Other long term (current) drug therapy; Z86.73 Personal history of transient ischemic attack (TIA), and cerebral infarction without residual deficits; Z87.891 Personal history of nicotine dependence; Z85.46 Personal history of malignant neoplasm of prostate; Z90.79 Acquired absence of other genital organ(s); Z98.890 Other specified postprocedural states; Z80.7 Family history of other malignant neoplasms of lymphoid, hematopoietic and related tissues
CPT/HCPCS: 36415; 70450; 70496; 70498; 71046; 80048; 80053; 80061; 82550; 82553; 83036; 84484; 85025; 85610; 85652; 85730; 86038; 86039; 86140; 93005; 93880; 96360; 96361; 99285

== ENCOUNTER → 2019-12-25 | Outpatient (CLI) | payer MEDICARE, OTHER ==
[2019-12-25 14:28] LABS: Basophils % (A) 1 %; Eosinophils # (A) 0.1 k/uL (0-0.7); Eosinophils % (A) 2 %; HCT 43.3 % (39.0-53.0); HGB 14.8 gm/dL (13.0-17.5); Lymphocytes # (A) 1.4 k/uL (1.0-4.8); Lymphocytes % (A) 23 %; MCH 32.2 pg (25.0-35.0); MCHC 34.1 g/dL (31.0-37.0); MCV 94.5 fL (80.0-100.0); Mean Platelet Volume 9.2; Monocytes # (A) 0.3 k/uL (0-1.0); Monocytes % (A) 5 %; Neutrophils # (A) 4.1 k/uL (1.3-7.7); Neutrophils % (A) 68 %; Platelet Count 196 k/uL (150-450); RBC 4.59 m/uL (4.30-5.90); WBC 6.1 k/uL (3.8-10.6)
[2019-12-25 14:33] LABS: Potassium 4.1 mmol/L (3.5-5.1)
[2019-12-25 14:34] LABS: African American GFR (CKD) >90 (>60 ml/min/1.73 sqM); Anion Gap 9 mmol/L; Blood Urea Nitrogen 20 mg/dL (9-20); Carbon Dioxide 26 mmol/L (22-30); Chloride 105 mmol/L (98-107); Non-African American GFR(CKD) 81 (>60 ml/min/1.73 sqM); Sodium 140 mmol/L (137-145)
== END | disposition home or self-care (01) ==
LOC: LABPAT 13:46
PROVIDERS: ATTEND Surgery
DX: Z01.812 Encounter for preprocedural laboratory examination (principal); I65.22 Occlusion and stenosis of left carotid artery
CPT/HCPCS: 36415; 80051; 82565; 84520; 85025

== ENCOUNTER 2020-01-02 05:44 | Inpatient (IN) | payer MEDICARE, OTHER ==
[2019-12-28 11:21] VITALS: BMI 23.1
[~2020-01-02 05:44] MED LIST changes: +ASPIRIN 325 MG TAB PO STA; +CLOPIDOGREL 75 MG TAB PO STA; -IV FLUID CONTINUATION 475 ML IV ONE; -LIDOCAINE 1% INJ 10MG/ML (20 ML MDV) ONE; -MIDAZOLAM 2 MG/2 ML VIAL IVP ONE; -MIDAZOLAM 2 MG/2 ML VIAL ONE; +NITROGLYCERIN SL TABS 0.4 MG TAB SUBLINGUAL PRN; -SODIUM CHLORIDE 0.9% 1,000 ML IV SCH; +SODIUM CHLORIDE 0.9% 1,000 ML in EMPTY BAG 1 BAG IV ONE; -ceFAZolin IN SWFI 2 GM/20 ML SYRINGE IVP ONE; -fentaNYL (PF) 50 MCG/ML 2 ML AMP IV ONE; -fentaNYL (PF) 50 MCG/ML 2 ML AMP ONE
[2020-01-02] MEDS ORDERED: LIDOCAINE 1% 20 ML VIAL (10MG/ML) FOR IV START INTRADERMA PRN (05:53)
[2020-01-02] MEDS ORDERED: LACTATED RINGERS 1,000 ML IV SCH (05:53)
[2020-01-02] MEDS ORDERED: ASPIRIN 325 MG TAB ONE (06:07)
[2020-01-02] MEDS ORDERED: SODIUM CHLORIDE 0.9% 1,000 ML IV ONE (06:42)
[2020-01-02] MEDS ORDERED: DEXMEDETOMIDINE/0.9% NACL(PMX) 400 MCG in EMPTY BAG 1 BAG IV SCH (07:15)
[2020-01-02] MEDS ORDERED: ePHEDrine SULFATE/0.9% NACL/PF 50 MG/5 ML SYRINGE IV ONE (07:31)
[2020-01-02] MEDS ORDERED: MIDAZOLAM 2 MG/2 ML VIAL ONE (07:31)
[2020-01-02] MEDS ORDERED: PHENYLEPHRINE-0.9% NACL SYG 1 MG/10 ML SYRINGE ONE (07:31)
[2020-01-02] MEDS ORDERED: PROTAMINE SULFATE 10 MG/ML 5 ML VIAL IV ONE (07:31)
[2020-01-02] MEDS ORDERED: fentaNYL (PF) 50 MCG/ML 2 ML AMP ONE (07:31)
[2020-01-02] MEDS ORDERED: GLYCOPYRROLATE 0.2 MG/ML 2 ML VIAL ONE (07:31)
[2020-01-02] MEDS ORDERED: HEPARIN SODIUM,PORCINE 10,000 UNIT/ML 1 ML VIAL ONE (07:31)
[2020-01-02] MEDS ORDERED: CLOPIDOGREL 75 MG TAB ONE (07:33)
--- NOTE | 2020-01-02 07:44 | P.GSHP ---
History of Present Illness H&P Date: 01/02/20 Chief Complaint: carotid stenosis 74 year old gentleman with history of TIA's and right carotid occlusion presented to the office secondary to left sided critical stenosis greater than 90%. Patient was started on plavix and statin at that time and we reviewed the CTA and patient is a candidate for TCAR. He presents today for procedure. - Review of Systems All systems: negative (what is mentioned in HPI or PMH) Past Medical History Past Medical History: Cancer, CVA/TIA, Eye Disorder, GERD/Reflux, Hyperlipidemia, Hypertension, Osteoarthritis (OA) Additional Past Medical History / Comment(s): 04/2018 TIA-experienced R eye vision change and L arm numbness/some mental changes, prostate cancer with surgery, arthritis in shoulders/back, constipation. History of Any Multi-Drug Resistant Organisms: None Reported Past Surgical History: Hernia Repair, Prostate Surgery Additional Past Surgical History / Comment(s): Bilateral inguinal hernia repairs, prostatectomy, colonoscopy, SANDRINE, Loop recorder Past Anesthesia/Blood Transfusion Reactions: No Reported Reaction Additional Past Anesthesia/Blood Transfusion Reaction / Comment(s): no hx blood transfusion Type of Cardiac Device: Loop Device Placement Date:: 2017 Smoking Status: Former smoker - Past Family History Mother Family Medical History: Cancer Additional Family Medical History / Comment(s): multiple myeloma Father Family Medical History: Cancer Additional Family Medical History / Comment(s): Lymphoma Brother(s) Family Medical History: Cancer Additional Family Medical History / Comment(s): Hodgkins or nonhodgkins lymphoma Medications and Allergies Home Medications Medication Instructions Recorded Confirmed Type Acetaminophen Tab [Tylenol] 325 - 650 mg PO Q6H PRN 03/25/17 01/02/20 History Ibuprofen [Motrin] 200 - 400 mg PO Q6HR PRN 03/25/17 01/02/20 History Metoprolol Succinate (ER) [Toprol 12.5 mg PO DAILY 11/03/19 01/02/20 History XL] Multivit-Min/FA/Lycopen/Lutein 1 tab PO DAILY 11/03/19 01/02/20 History [Centrum Silver Men Tablet] Artificial Tears-Hypromellose 1 drops BOTH EYES QID PRN #1 bottle 11/08/19 01/02/20 Rx [Artificial Tear Drops] Brimonidine Tartrate [Alphagan P 1 drops RIGHT EYE Q8H #1 ml 11/08/19 01/02/20 Rx 0.2% Ophth Soln] Clopidogrel [Plavix] 75 mg PO DAILY #30 tab 11/08/19 01/02/20 Rx amLODIPine [Norvasc] 5 mg PO DAILY #30 tab 11/08/19 01/02/20 Rx Aspirin 81 mg PO BID 12/28/19 01/02/20 History Famotidine [Pepcid] 20 mg PO BID 12/28/19 01/02/20 History Rosuvastatin [Crestor] 20 mg PO DAILY 12/28/19 01/02/20 History Allergies Allergy/AdvReac Type Severity Reaction Status Date / Time No Known Allergies Allergy Verified 12/28/19 11:10 Surgical - Exam Vital Signs Temp Pulse Resp BP Pulse Ox 98 F 77 16 147/70 98 01/02/20 06:17 01/02/20 06:17 01/02/20 06:17 01/02/20 06:17 01/02/20 06:17 - General well developed, well nourished - Eyes PERRL - ENT normal pinna - Neck no masses - Respiratory normal expansion - Cardiovascular Rhythm: regular - Neurologic normal coordination, normal sensation - Musculoskeletal normal gait - Psychiatric oriented to time, oriented to person, oriented to place Assessment and Plan Assessment: 1. LICA >90% stenosis with contralateral occlusion 2. History of TIA's Plan: L TCAR today.
[2020-01-02] MEDS ORDERED: HEPARIN SODIUM 1,000 UN/ML (10ML VL) IV ONE ×2 (08:00→08:30)
[2020-01-02] MEDS ORDERED: LIDOCAINE 1% INJ 10MG/ML (20 ML MDV) SQ ONE (08:24)
[2020-01-02] MEDS ORDERED: ATROPINE SULFATE 0.1 MG/ML 10ML SYRINGE IV PRN (09:21)
[2020-01-02] MEDS ORDERED: RX INFO: IV CONTRAST WAS GIVEN 1 EACH MISC MISCELLANE PRN (09:21)
[2020-01-02] MEDS ORDERED: MAG HYDROX/AL HYDROX/SIMETH 30 ML CUP PO PRN (09:21)
[2020-01-02] MEDS ORDERED: ARTIFICIAL TEARS-HYPROMELLOSE DROPS 15 ML BTL BOTH EYES PRN (09:24)
[2020-01-02] MEDS ORDERED: IBUPROFEN 400 MG TAB PO PRN (09:24)
[2020-01-02] MEDS ORDERED: ACETAMINOPHEN TAB 325 MG TAB PO PRN (09:24)
[2020-01-02] MEDS: SODIUM CHLORIDE 0.9% 1,000 ML IV SCH ×2 (09:30→20:01)
[2020-01-02 09:33] LABS: Glucose,Whole Blood 122 mg/dL (75-99)
[2020-01-02] MEDS ORDERED: CLOPIDOGREL 75 MG TAB PO STA (10:05)
--- NOTE | 2020-01-02 10:18 | P.OP ---
Date of Procedure: 01/02/20 Preoperative Diagnosis: Left ICA severe stenosis >90% Right ICA occlusion Postoperative Diagnosis: Same Procedure(s) Performed: Left TCAR Ultrasound guided left femoral vein access Implants: 9x30mm Enroute stent Anesthesia: local, other (sedation) Surgeon: Stephen Zaragoza Wirer Helper #1: Loren Tyler Estimated Blood Loss (ml): 15 (50 mL of contrast. Fluoroscopy time 4.3 minutes.) Pathology: none sent Disposition: PACU Indications for Procedure: 74 year old with history of right carotid artery occlusion and left internal artery > 90% stenosis presents to the hospital for elective left TCAR. Description of Procedure: After written informed consent was obtained the patient all risks benefits and competitions were described the patient is brought to the Restaurant Front Manager and laid in a supine position. The area of the neck and groins were prepped and draped in usual sterile fashion after appropriate anesthetic was performed per the anesthesiologist. A timeout was performed in normal fashion antibiotics were administered prior to incision. A transverse incision was then created approximately 2 fingerbreadths above the clavicle overlying the sternocleidomastoid musculature with a 15 blade scalpel and dissection was carried down to the carotid sheath. The internal jugular vein was then dissected free and retracted laterally to get access to the common carotid artery. Common carotid artery was then dissected in a circumferential manner and controlled with umbilical tape. Once controlled pursestring suture was then placed with a 5-0 Prolene suture. Attention was then placed to the femoral vein access. Ultrasound was utilized to visualize the left common femoral vein and shown to be patent without any thrombus. Utilizing a multipurpose needle and Seldinger technique the 8-Cymro and Route sheath was placed in normal fashion under ultrasound guidance. Patient was administered heparin and followed with ACTs for appropriate heparinization above 250. Once appropriate ACT was obtained access to the common carotid artery was then performed with a multipurpose needle. 014 wire was then placed followed by the 4-Cymro sheath. Carotid angiogram was then obtained demonstrating severe stenosis greater than 90% of the internal carotid artery just after the takeoff. 014 wire was then placed into the external system followed by the 4-Cymro sheath. A stiff of 035 wire was then placed into the external system followed by the 8-Cymro arterial En-Route ASBESTOS ABATEMENT TECHNICIAN system sheath. Once in appropriate position multiple views and angiograms were obtained demonstrating good intraluminal access and positioning of the sheath. The En-Route ASBESTOS ABATEMENT TECHNICIAN system was then connected for flow reversal. TCAR timeout was then obtained and once patient's blood pressure was over 160, heart rate greater than 60 and balloon and stents were chosen and placed on the field the common carotid artery was clamped. Reversal flow was then assessed and good reversal flow was noted. An 014 wire was then placed across the lesion followed by a 5.5 x 30 mm Oliver balloon and pre-dilatation was performed. Once completed a 9 x 30 mm En-Route silk Road stent was deployed across the lesion in normal fashion. Patient was monitored throughout with real oximetry which did drop 10% during the procedure as well as patient was awake and was moving following commands throughout the entirety of the procedure. Once completed 2 minutes was allowed for reversal of flow to remove any debris. Once completed final angiogram was obtained demonstrating complete resolution of the stenosis with good visualization of flow. Flow reversal was 9 minutes and once completed the reestablished antegrade flow and final angiogram was obtained demonstrating good brisk flow through the carotid system and stents with no residual stenosis. All guidewires and catheters were then removed and incision was closed in a multilayer fashion skin was then cleansed and dressings were placed. The sheath in the groin was also removed and pressure was placed for hemostasis. Once hemostatic and patient was administered 20 mg of protamine to assist with hemostasis. Patient tolerated the procedure well, was moving all extremities and following commands and was sent to PACU for recovery.
[2020-01-02] MEDS: PHENYLEPHRINE 40 MG in SODIUM CHLORIDE 0.9% 250 ML IV SCH (10:26)
[2020-01-02] MEDS: BRIMONIDINE TARTRATE 0.2% DROPS 5 ML BTL RIGHT EYE SCH ×3 (10:36→23:01)
--- NOTE | 2020-01-02 11:27 | P.CONS ---
History of Present Illness - History of Present Illness This is a pleasant 74 years old male with past medical history of CVA/TIA, GERD, hyperlipidemia, hypertension, osteoarthritis, prostate cancer status post surgery. 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 Patient is seen in the ICU, patient fully awake, little drowsy from anesthesia affect. Denied chest pain or dyspnea, no abdominal pain. Patient is a place and surgical site looks stable Temperature 98.0, heart rate 77, preservative 16 blood pressure 147/70, saturating 98% on room air. Glucose is controlled Review of Systems CONSTITUTIONAL: No fever, no malaise, no fatigue. HEENT: No recent visual problems or hearing problems. Denied any sore throat. CARDIOVASCULAR: No orthopnea, PND, no palpitations, no syncope. PULMONARY: No shortness of breath, no cough, no hemoptysis. GASTROINTESTINAL: No diarrhea, no nausea, no vomiting, no abdominal pain. Normoactive bowel sounds. NEUROLOGICAL: No headaches, no weakness, no numbness. HEMATOLOGICAL: Denies any bleeding or petechiae. GENITOURINARY: Denies any burning micturition, frequency, or urgency. MUSCULOSKELETAL/RHEUMATOLOGICAL: Denies any joint pain, swelling, or any muscle pain. ENDOCRINE: Denies any polyuria or polydipsia. Past Medical History Past Medical History: Cancer, CVA/TIA, Eye Disorder, GERD/Reflux, Hyperlipidemia, Hypertension, Osteoarthritis (OA) Additional Past Medical History / Comment(s): 04/2018 TIA-experienced R eye vision change and L arm numbness/some mental changes, prostate cancer with surgery, arthritis in shoulders/back, constipation. History of Any Multi-Drug Resistant Organisms: None Reported Past Surgical History: Hernia Repair, Prostate Surgery Additional Past Surgical History / Comment(s): Bilateral inguinal hernia repairs, prostatectomy, colonoscopy, SANDRINE, Loop recorder Past Anesthesia/Blood Transfusion Reactions: No Reported Reaction Additional Past Anesthesia/Blood Transfusion Reaction / Comm: no hx blood transfusion Type of Cardiac Device: Loop Device Placement Date:: 2017 Smoking Status: Former smoker - Past Family History Mother Family Medical History: Cancer Additional Family Medical History / Comment(s): multiple myeloma Father Family Medical History: Cancer Additional Family Medical History / Comment(s): Lymphoma Brother(s) Family Medical History: Cancer Additional Family Medical History / Comment(s): Hodgkins or nonhodgkins lymphoma Medications and Allergies Home Medications Medication Instructions Recorded Confirmed Type Acetaminophen Tab [Tylenol] 325 - 650 mg PO Q6H PRN 03/25/17 01/02/20 History Ibuprofen [Motrin] 200 - 400 mg PO Q6HR PRN 03/25/17 01/02/20 History Metoprolol Succinate (ER) [Toprol 12.5 mg PO DAILY 11/03/19 01/02/20 History XL] Multivit-Min/FA/Lycopen/Lutein 1 tab PO DAILY 11/03/19 01/02/20 History [Centrum Silver Men Tablet] Artificial Tears-Hypromellose 1 drops BOTH EYES QID PRN #1 bottle 11/08/19 01/02/20 Rx [Artificial Tear Drops] Brimonidine Tartrate [Alphagan P 1 drops RIGHT EYE Q8H #1 ml 11/08/19 01/02/20 Rx 0.2% Ophth Soln] Clopidogrel [Plavix] 75 mg PO DAILY #30 tab 11/08/19 01/02/20 Rx amLODIPine [Norvasc] 5 mg PO DAILY #30 tab 11/08/19 01/02/20 Rx Aspirin 81 mg PO BID 12/28/19 01/02/20 History Famotidine [Pepcid] 20 mg PO BID 12/28/19 01/02/20 History Rosuvastatin [Crestor] 20 mg PO DAILY 12/28/19 01/02/20 History Allergies Allergy/AdvReac Type Severity Reaction Status Date / Time No Known Allergies Allergy Verified 12/28/19 11:10 Physical Exam Vitals: Vital Signs Temp Pulse Pulse Resp BP BP Pulse Ox 01/02/20 06:35 98.0 F 77 16 147/70 98 01/02/20 06:17 98 F 77 16 147/70 98 Intake and Output 01/01/20 01/02/20 01/02/20 22:59 06:59 14:59 Intake Total 50 3.507 Balance 50 3.507 Intake: IV 50 0 Intake, IV Titration 3.507 Amount Phenylephrine 40 mg In 3.507 Sodium Chloride 0.9% 250 ml @ 0.5 MCG/KG/MIN 15.03 mls/hr IV .[id number] [facility] Rx#:[id number] Other: Weight 78.9 kg GENERAL: The patient is alert and oriented x3, not in any acute distress. Well developed, well nourished. -HEENT: Pupils are round and equally reacting to light. EOMI. No scleral icterus. No conjunctival pallor. Normocephalic, atraumatic. No pharyngeal erythema. No thyromegaly. Left neck surgical wound with dressing in place CARDIOVASCULAR: S1 and S2 present. No murmurs, rubs, or gallops. PULMONARY: Chest is clear to auscultation, no wheezing or crackles. ABDOMEN: Soft, nontender, nondistended, normoactive bowel sounds. No palpable organomegaly. MUSCULOSKELETAL: No joint swelling or deformity. EXTREMITIES: No cyanosis, clubbing, or pedal edema. NEUROLOGICAL: Gross neurological examination did not reveal any focal deficits. SKIN: No rashes. No petechiae Results Labs: Abnormal Lab Results - Last 24 Hours (Table) 01/02/20 Range/Units 09:31 POC Glucose (mg/dL) 122 H (75-99) mg/dL Assessment and Plan Assessment: Recent history of TIA severe left internal carotid artery stenosis more than 90% with right ICA occlusion underwent TCAR Gastroesophageal reflux disease Hypertension Hyperlipidemia Osteoarthritis Plan: This is a pleasant 74 years old male who presents for elective TCAR. Labs and medication were reviewed.. Continue same treatment. Continue with symptomatic treatment. Resume home medication. Monitor lytes and vitals. DVT and GI prophylaxis. Further recommendations of the clinical course of the patient
--- NOTE | 2020-01-02 12:13 | P.CNPUL ---
History of Present Illness Consult date: 01/02/20 Requesting physician: Stephen Zaragoza Reason for consult: other (ICU management.) Chief complaint: Status post left carotid endarterectomy History of present illness: This is a 74-year-old white male, recent history of CVA/TIA, patient presented with a right sided loss of vision. Workup revealed significant carotid artery disease, his right carotid artery was totally occluded, and his left internal carotid was over 90% occluded. Patient underwent elective total left carotid endarterectomy today, and postoperatively he was in the ICU, I was asked to see him on consultation. Patient has no active pulmonary symptoms, he had a remote smoking history over 20 years ago, no history of documented COPD. Patient is known to have history of hypertension, dyslipidemia, degenerative joint disease, and history of prostate cancer previous surgery. Review of Systems CONSTITUTIONAL: Denies weight loss, fever or chills. HEENT: Patient had a recent right sided visual loss, partial, related to CVA. And continues to have poor vision in right eye.. CARDIOVASCULAR: No chest pain, no orthopnea, no PND. No palpitations. PULMONARY: No cough no wheezing no shortness of breath no hemoptysis. GASTROINTESTINAL: No nausea no vomiting no abdominal pain no melena and no hematemesis. NEUROLOGICAL: No headache no blurred vision no dizziness. HEMATOLOGICAL: Denies any clotting bleeding or bruising GENITOURINARY: No dysuria frequency urgency hematuria. MUSCULOSKELETAL/RHEUMATOLOGICAL: Denies any deformities or any limitation in range of motion. ENDOCRINE: Denies any heat or cold intolerance. Skin: Denies any rashes. Psychiatric: Denies any symptoms of active depression. Past Medical History Past Medical History: Cancer, CVA/TIA, Eye Disorder, GERD/Reflux, Hyperlipidemia, Hypertension, Osteoarthritis (OA) Additional Past Medical History / Comment(s): 04/2018 TIA-experienced R eye vision change and L arm numbness/some mental changes, prostate cancer with surgery, arthritis in shoulders/back, constipation. History of Any Multi-Drug Resistant Organisms: None Reported Past Surgical History: Hernia Repair, Prostate Surgery Additional Past Surgical History / Comment(s): Bilateral inguinal hernia repairs, prostatectomy, colonoscopy, SANDRINE, Loop recorder Past Anesthesia/Blood Transfusion Reactions: No Reported Reaction Additional Past Anesthesia/Blood Transfusion Reaction / Comment(s): no hx blood transfusion Type of Cardiac Device: Loop Device Placement Date:: 2017 Smoking Status: Former smoker - Past Family History Mother Family Medical History: Cancer Additional Family Medical History / Comment(s): multiple myeloma Father Family Medical History: Cancer Additional Family Medical History / Comment(s): Lymphoma Brother(s) Family Medical History: Cancer Additional Family Medical History / Comment(s): Hodgkins or nonhodgkins lymphoma Medications and Allergies Home Medications Medication Instructions Recorded Confirmed Type Acetaminophen Tab [Tylenol] 325 - 650 mg PO Q6H PRN 03/25/17 01/02/20 History Ibuprofen [Motrin] 200 - 400 mg PO Q6HR PRN 03/25/17 01/02/20 History Metoprolol Succinate (ER) [Toprol 12.5 mg PO DAILY 11/03/19 01/02/20 History XL] Multivit-Min/FA/Lycopen/Lutein 1 tab PO DAILY 11/03/19 01/02/20 History [Centrum Silver Men Tablet] Artificial Tears-Hypromellose 1 drops BOTH EYES QID PRN #1 bottle 11/08/19 01/02/20 Rx [Artificial Tear Drops] Brimonidine Tartrate [Alphagan P 1 drops RIGHT EYE Q8H #1 ml 11/08/19 01/02/20 Rx 0.2% Ophth Soln] Clopidogrel [Plavix] 75 mg PO DAILY #30 tab 11/08/19 01/02/20 Rx amLODIPine [Norvasc] 5 mg PO DAILY #30 tab 11/08/19 01/02/20 Rx Aspirin 81 mg PO BID 12/28/19 01/02/20 History Famotidine [Pepcid] 20 mg PO BID 12/28/19 01/02/20 History Rosuvastatin [Crestor] 20 mg PO DAILY 12/28/19 01/02/20 History Allergies Allergy/AdvReac Type Severity Reaction Status Date / Time No Known Allergies Allergy Verified 12/28/19 11:10 Physical Exam Vitals: Vital Signs Temp Pulse Pulse Resp BP BP Pulse Ox 01/02/20 06:35 98.0 F 77 16 147/70 98 01/02/20 06:17 98 F 77 16 147/70 98 Intake and Output 01/01/20 01/02/20 01/02/20 22:59 06:59 14:59 Intake Total 50 3.507 Balance 50 3.507 Intake: IV 50 0 Intake, IV Titration 3.507 Amount Phenylephrine 40 mg In 3.507 Sodium Chloride 0.9% 250 ml @ 0.5 MCG/KG/MIN 15.03 mls/hr IV .[id number] [facility] Rx#:[id number] Other: Weight 78.9 kg Physical Exam: Revealed 74-year-old white male in no distress, extremely pleasant. Head: Atraumatic, normocephalic. HEENT:[Neck is supple.] [No neck masses.] [No thyromegaly.] [No JVD.] Surgical dressing noted in the left neck area over the surgical site. No swelling, no stridor. And no evidence of hematoma. Chest: [Clear throughout, no crackles, no rhonchi, no wheezes.] Symmetrical chest expansion bilaterally. Cardiac Exam: [Normal S1 and S2, no S3 gallop, no murmur.] Abdomen: [Soft, nontender, no megaly, no rebound, no guarding, normal bowel sounds.] Extremities: [No clubbing, no edema, no cyanosis.] Neurological Exam: [No focal neurologic deficit.] Alert and oriented 3. Psychiatric: Normal mood, affect, and normal mental status examination. Skin: No rashes. Lymphatics: No lymphadenopathy. Musculoskeletal: No deformities and no limitation in range of motion Results - Laboratory Findings Abnormal lab findings: Abnormal Labs 01/02/20 09:31 POC Glucose (mg/dL) 122 H Assessment and Plan Assessment: Impression: Status post left carotid endarterectomy, postoperative day #0. Recent CVA with right-sided visual loss, partial. Benign essential hypertension. Ex-smoker, remote smoking history. However no active pulmonary symptoms. Degenerative joint disease. Dyslipidemia. GERD without esophagitis. Recommendation: Continue present supportive care measures. Continue GI and DVT prophylaxis. Resume home meds. Incentive spirometer. Early ambulation. Blood pressure control. We'll continue to follow. Possible discharge planning in the next 24 hours Time with Patient: Greater than 30
--- NOTE | 2020-01-02 12:45 | IR ---
Fluoroscopy HISTORY: Carotid stenosis 4.3 minutes fluoroscopy time supplied to the referring clinician. 144 intraoperative C-arm images do cument the procedure. See dictated report from vascular surgery.
[2020-01-02] MEDS: FAMOTIDINE 20 MG TAB PO SCH (20:01)
[2020-01-02] MEDS: ASPIRIN 81 MG PO SCH (20:01)
[2020-01-03 04:15] LABS: Basophils % (A) 1 %; Eosinophils # (A) 0.1 k/uL (0-0.7); Eosinophils % (A) 2 %; HCT 37.7 % (39.0-53.0); HGB 12.9 gm/dL (13.0-17.5); Lymphocytes # (A) 0.6 k/uL (1.0-4.8); Lymphocytes % (A) 9 %; MCHC 34.2 g/dL (31.0-37.0); MCV 93.5 fL (80.0-100.0); Mean Platelet Volume 9.3; Monocytes # (A) 0.4 k/uL (0-1.0); Monocytes % (A) 7 %; Neutrophils # (A) 5.2 k/uL (1.3-7.7); Neutrophils % (A) 81 %; Platelet Count 139 k/uL (150-450); RBC 4.03 m/uL (4.30-5.90); RDW 11.9 % (11.5-15.5); WBC 6.4 k/uL (3.8-10.6)
[2020-01-03 04:28] LABS: African American GFR (CKD) >90 (>60 ml/min/1.73 sqM); Anion Gap 5 mmol/L; Blood Urea Nitrogen 12 mg/dL (9-20); Calcium 8.8 mg/dL (8.4-10.2); Carbon Dioxide 21 mmol/L (22-30); Chloride 111 mmol/L (98-107); Glucose 105 mg/dL (74-99); Non-African American GFR(CKD) >90 (>60 ml/min/1.73 sqM); Potassium 3.9 mmol/L (3.5-5.1); Sodium 137 mmol/L (137-145)
[2020-01-03] MEDS: PHENYLEPHRINE 40 MG in SODIUM CHLORIDE 0.9% 250 ML IV SCH (07:38)
--- NOTE | 2020-01-03 07:54 | P.PN ---
Subjective This is a pleasant 74 years old male with past medical history of CVA/TIA, GERD, hyperlipidemia, hypertension, osteoarthritis, prostate cancer status post surgery. 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 Patient is seen in the ICU, patient fully awake, little drowsy from anesthesia affect. Denied chest pain or dyspnea, no abdominal pain. Patient is a place and surgical site looks stable Temperature 98.0, heart rate 77, preservative 16 blood pressure 147/70, saturating 98% on room air. Glucose is controlled 01/03/2020 Patient is lying in bed comfortable, no distress, no chest pain or dyspnea. No new complaints, no dizziness, he is hemodynamically stable and his blood pressure is 117/64-132/76, he saturating 94% and heart rate is 59-64. Patient is afebrile. Doppler BC 6.4K, hemoglobin 12.9. BMP is unremarkable with normal creatinine, sodium and potassium levels. Patient remains on Plavix and aspirin Possible discharge today Objective - Vital Signs Vital signs: Vital Signs Temp 98.3 F 01/03/20 04:00 Pulse 59 L 01/03/20 06:00 Resp 14 01/03/20 06:00 BP 132/76 01/03/20 06:00 Pulse Ox 94 L 01/03/20 06:00 Intake & Output 01/02/20 01/03/20 01/03/20 18:59 06:59 18:59 Intake Total 2300.367 3354 Output Total 1700 1650 Balance -179.165 -111 Weight 79.2 kg 79 kg Intake: IV 28.5 1039 Normal Saline Pressure 28.5 39 bag Sodium Chloride 0.9% 1, 1000 000 ml @ 100 mls/hr IV . Q10H [facility] Rx#:[id number] Intake, IV Titration 992.335 100 Amount Phenylephrine 40 mg In 42.335 Sodium Chloride 0.9% 250 ml @ 0.5 MCG/KG/MIN 15.03 mls/hr IV .[id number] [facility] Rx#:[id number] Sodium Chloride 0.9% 1, 950 100 000 ml @ 100 mls/hr IV . Q10H [facility] Rx#:[id number] Oral 500 400 Output: Urine 1700 1650 Other: # Voids 1 ABP, PAP, CO, CI - Last Documented Arterial Blood Pressure 123/51 - Exam GENERAL: The patient is alert and oriented x3, not in any acute distress. Well developed, well nourished. -HEENT: Pupils are round and equally reacting to light. EOMI. No scleral icterus. No conjunctival pallor. Normocephalic, atraumatic. No pharyngeal erythema. No thyromegaly. Left neck surgical wound with dressing in place CARDIOVASCULAR: S1 and S2 present. No murmurs, rubs, or gallops. PULMONARY: Chest is clear to auscultation, no wheezing or crackles. ABDOMEN: Soft, nontender, nondistended, normoactive bowel sounds. No palpable organomegaly. MUSCULOSKELETAL: No joint swelling or deformity. -EXTREMITIES: No cyanosis, clubbing, or pedal edema. Left inguinal puncture wound is closed, no signs of inflammation NEUROLOGICAL: Gross neurological examination did not reveal any focal deficits. SKIN: No rashes. No petechiae - Labs CBC & Chem 7: 01/03/20 04:03 01/03/20 04:03 Labs: Abnormal Lab Results - Last 24 Hours (Table) 01/02/20 01/03/20 01/03/20 Range/Units 09:31 04:03 04:03 RBC 4.03 L (4.30-5.90) m/uL Hgb 12.9 L (13.0-17.5) gm/dL Hct 37.7 L (39.0-53.0) % Plt Count 139 L (150-450) k/uL Lymphocytes # 0.6 L (1.0-4.8) k/uL Chloride 111 H (98-107) mmol/L Carbon Dioxide 21 L (22-30) mmol/L Glucose 105 H (74-99) mg/dL POC Glucose (mg/dL) 122 H (75-99) mg/dL Assessment and Plan Assessment: Recent history of TIA severe left internal carotid artery stenosis more than 90% with right ICA occlusion underwent TCAR Gastroesophageal reflux disease Hypertension Hyperlipidemia Osteoarthritis Plan: This is a pleasant 74 years old male who presents for elective TCAR. Labs and medication were reviewed.. Continue same treatment. Continue with sym ptomatic treatment. Resume home medication. Monitor lytes and vitals. DVT and GI prophylaxis. Patient was instructed about the importance of advanced therapy and he agrees, risks and benefits are explained. Further recommendations of the clinical course of the patient Possible discharge today Patient was instructed to follow-up with his family doctor within 1 week and he agrees Thank you for consulting us
[2020-01-03] MEDS: BRIMONIDINE TARTRATE 0.2% DROPS 5 ML BTL RIGHT EYE SCH (08:30)
[2020-01-03] MEDS: ASPIRIN 81 MG PO SCH (08:31)
[2020-01-03] MEDS: FAMOTIDINE 20 MG TAB PO SCH (08:31)
[2020-01-03 08:35] VITALS: TEMP 98
[2020-01-03] MEDS ORDERED: CLOPIDOGREL 75 MG TAB PO SCH (09:00)
[2020-01-03] MEDS ORDERED: amLODIPine 5 MG TAB PO SCH (09:00)
[2020-01-03] MEDS ORDERED: MULTIVITAMINS, THERA 1 EACH TAB PO SCH (09:00)
[2020-01-03] MEDS ORDERED: ATORVASTATIN 40 MG TAB PO SCH (09:00)
[2020-01-03] MEDS ORDERED: METOPROLOL SUCCINATE (ER) 25 MG TAB.ER.24H PO SCH (09:00)
--- NOTE | 2020-01-03 09:32 | P.DS ---
Providers Date of admission: 01/02/20 05:44 Expected date of discharge: 01/03/20 Attending physician: Stephen Zaragoza DO Consults: 01/02/20 09:21 Consult Physician Routine Consulting Provider: Juan Luis Couch Consult Reason/Comments: ICU care Do you want consulting provider notified?: Yes 01/02/20 10:35 Consult Physician Routine Consulting Provider: Chris Pozo Consult Reason/Comments: medical management Do you want consulting provider notified?: Yes Primary care physician: [facility] Course: Patient is a 74-year-old gentleman with a history of TIAs and right carotid occlusion who was following with Dr. Zaragoza secondary to left-sided critical stenosis greater than 90%. The patient was started on Plavix and statin at that time. The patient underwent a TCAR procedure yesterday on 01/02/[address] Zaragzoa. After the TCAR procedure he was admitted to the ICU overnight. The patient denies any acute distress or changes through the night. He is doing well this morning, has been up and ambulating the hallways. Vital signs stable. Tolerating a regular diet. States he is ready to go home. Assessment: Exam: General appearance: The patient is alert, oriented, in no acute distress. HET: Head is normocephalic and atraumatic. Neck: Supple without lymphadenopathy. Trachea midline. Dressing was clean drain intact, removed this morning. Incision is well approximated without any drainage. Small hematoma noted around incision, with minimal bruising. Heart: S1 S2. Regular rate and rhythm. Lungs: No crackles or wheezes are heard. Abdomen: Soft, nontender, nondistended with bowel sounds. No peritoneal signs. No palpable organomegaly or masses. Extremities: Normal skin color and turgor. No cyanosis, rash, ulceration, clubbing, or edema. Radial and pedal pulses are 2/4 bilaterally. Left groin site without any bleeding, hematoma, and with minimal bruising. Neurological: No focal deficits. Motor sensory intact. Assessment: 1. Left ICA greater than 90% stenosis with contralateral occlusion 2. History of TIAs Plan: Status post TCAR. Patient is doing well, vital signs are stable, incision is clean dry and intact. Patient to be discharged home with follow-up in the office with Dr. Zaragoza in 10-14 days. Patient Condition at Discharge: Good Plan - Discharge Summary Discharge Rx Participant: No New Discharge Prescriptions: Continue Acetaminophen Tab [Tylenol] 325 - 650 mg PO Q6H PRN PRN Reason: Pain Ibuprofen [Motrin] 200 - 400 mg PO Q6HR PRN PRN Reason: Pain Metoprolol Succinate (ER) [Toprol XL] 12.5 mg PO DAILY Multivit-Min/FA/Lycopen/Lutein [Centrum Silver Men Tablet] 1 tab PO DAILY Brimonidine Tartrate [Alphagan P 0.2% Ophth Soln] 1 drops RIGHT EYE Q8H #1 ml Artificial Tears-Hypromellose [Artificial Tear Drops] 1 drops BOTH EYES QID PRN #1 bottle PRN Reason: Dry Eye(S) amLODIPine [Norvasc] 5 mg PO DAILY #30 tab Clopidogrel [Plavix] 75 mg PO DAILY #30 tab Famotidine [Pepcid] 20 mg PO BID Rosuvastatin [Crestor] 20 mg PO DAILY Aspirin 81 mg PO BID Discharge Medication List Acetaminophen Tab [Tylenol] 325 - 650 mg PO Q6H PRN 03/25/17 [History] Ibuprofen [Motrin] 200 - 400 mg PO Q6HR PRN 03/25/17 [History] Metoprolol Succinate (ER) [Toprol XL] 12.5 mg PO DAILY 11/03/19 [History] Multivit-Min/FA/Lycopen/Lutein [Centrum Silver Men Tablet] 1 tab PO DAILY 11/03/19 [History] Artificial Tears-Hypromellose [Artificial Tear Drops] 1 drops BOTH EYES QID PRN #1 bottle 11/08/19 [Rx] Brimonidine Tartrate [Alphagan P 0.2% Ophth Soln] 1 drops RIGHT EYE Q8H #1 ml 11/08/19 [Rx] Clopidogrel [Plavix] 75 mg PO DAILY #30 tab 11/08/19 [Rx] amLODIPine [Norvasc] 5 mg PO DAILY #30 tab 11/08/19 [Rx] Aspirin 81 mg PO BID 12/28/19 [History] Famotidine [Pepcid] 20 mg PO BID 12/28/19 [History] Rosuvastatin [Crestor] 20 mg PO DAILY 12/28/19 [History] Follow up Appointment(s)/Referral(s): Stephen Zaragoza DO [STAFF PHYSICIAN] - 10 Days (F/U 10days to 2 weeks) Teodoro Andrea DO [Primary Care Provider] - 1 Week Activity/Diet/Wound Care/Special Instructions: Do not drive for 3 days. May shower, no tub baths. No heavy lifting. Discharge Disposition: HOME SELF-CARE
[2020-01-03 10:03] VITALS: BP 134/68; PULSE 65; RESP 14
--- NOTE | 2020-01-03 10:38 | P.PN ---
Subjective Progress Note Date: 01/03/20 Principal diagnosis: Status post left carotid endarterectomy. This is a 74-year-old white male, recent history of CVA/TIA, patient presented with a right sided loss of vision. Workup revealed significant carotid artery disease, his right carotid artery was totally occluded, and his left internal carotid was over 90% occluded. Patient underwent elective total left carotid endarterectomy today, and postoperatively he was in the ICU, I was asked to see him on consultation. Patient has no active pulmonary symptoms, he had a remote smoking history over 20 years ago, no history of documented COPD. Patient is known to have history of hypertension, dyslipidemia, degenerative joint disease, and history of prostate cancer previous surgery. Reevaluated today on 01/03/20, patient is postoperative day #1, doing well, asymptomatic, hemodynamically stable, denies any headache blurred vision dizziness, denies any cough wheezing shortness of breath, denies any GI symptoms. Patient was already seen by surgery on the case, and he is cleared to go home today. Objective - Vital Signs Vital signs: Vital Signs Temp 98.0 F 01/03/20 08:00 Pulse 65 01/03/20 10:00 Resp 14 01/03/20 10:00 BP 134/68 01/03/20 10:00 Pulse Ox 97 01/03/20 10:00 Intake & Output 01/02/20 01/03/20 01/03/20 18:59 06:59 18:59 Intake Total 5862.469 1450 293 Output Total 1700 1650 500 Balance -179.165 -111 -207 Weight 79.2 kg 79 kg Intake: IV 28.5 1039 53 Normal Saline Pressure 28.5 39 3 bag Sodium Chloride 0.9% 1, 1000 50 000 ml @ 100 mls/hr IV . Q10H [facility] Rx#:[id number] Intake, IV Titration 992.335 100 Amount Phenylephrine 40 mg In 42.335 Sodium Chloride 0.9% 250 ml @ 0.5 MCG/KG/MIN 15.03 mls/hr IV .[id number] [facility] Rx#:[id number] Sodium Chloride 0.9% 1, 950 100 000 ml @ 100 mls/hr IV . Q10H [facility] Rx#:[id number] Oral 500 400 240 Output: Urine 1700 1650 500 Other: Voiding Method Urinal # Voids 1 ABP, PAP, CO, CI - Last Documented Arterial Blood Pressure 146/59 - Exam Physical Exam: 74-year-old in no distress. Head: Atraumatic, normocephalic. HEENT:[Neck is supple.] [No neck masses.] [No thyromegaly.] [No JVD.] Surgical dressing noted in the left neck area over the surgical site. Chest: [Clear throughout, no crackles, no rhonchi, no wheezes.] Symmetrical chest expansion bilaterally. Cardiac Exam: [Normal S1 and S2, no S3 gallop, no murmur.] Abdomen: [Soft, nontender, no megaly, no rebound, no guarding, normal bowel s ounds.] Extremities: [No clubbing, no edema, no cyanosis.] Neurological Exam: [No focal neurologic deficit.] Alert and oriented 3. Psychiatric: Normal mood, affect, and normal mental status examination. Skin: No rashes. Lymphatics: No lymphadenopathy. Musculoskeletal: No deformities and no limitation in range of motion - Labs CBC & Chem 7: 01/03/20 04:03 01/03/20 04:03 Labs: Abnormal Lab Results - Last 24 Hours (Table) 01/03/20 01/03/20 Range/Units 04:03 04:03 RBC 4.03 L (4.30-5.90) m/uL Hgb 12.9 L (13.0-17.5) gm/dL Hct 37.7 L (39.0-53.0) % Plt Count 139 L (150-450) k/uL Lymphocytes # 0.6 L (1.0-4.8) k/uL Chloride 111 H (98-107) mmol/L Carbon Dioxide 21 L (22-30) mmol/L Glucose 105 H (74-99) mg/dL Assessment and Plan Assessment: Impression: Status post left carotid endarterectomy, postoperative day #1 Recent CVA with right-sided visual loss, partial. Benign essential hypertension. Ex-smoker, remote smoking history. However no active pulmonary symptoms. Degenerative joint disease. Dyslipidemia. GERD without esophagitis. Recommendation: Resume home meds, Cleared for discharge home today. Patient was already cleared for discharge by vascular surgery on the case. Time with Patient: Less than 30
== END 2020-01-03 11:04 | disposition home or self-care (01) | DRG 36 ==
LOC: 2ORMAIN 05:44 → 2SICU 09:57
PROVIDERS: ADMIT Surgery; ATTEND Surgery
PROC: 037L3DZ Dilation of Left Internal Carotid Artery with Intraluminal Device, Percutaneous Approach (ICD-10-PCS; principal; 2020-01-02 07:30)
DX: I65.23 Occlusion and stenosis of bilateral carotid arteries (principal); K21.9 Gastro-esophageal reflux disease without esophagitis; I10 Essential (primary) hypertension; E78.5 Hyperlipidemia, unspecified; M19.012 Primary osteoarthritis, left shoulder; M19.011 Primary osteoarthritis, right shoulder; M47.9 Spondylosis, unspecified; I69.398 Other sequelae of cerebral infarction; H54.61 Unqualified visual loss, right eye, normal vision left eye; Z79.82 Long term (current) use of aspirin; Z79.899 Other long term (current) drug therapy; Z79.02 Long term (current) use of antithrombotics/antiplatelets; Z87.19 Personal history of other diseases of the digestive system; Z85.46 Personal history of malignant neoplasm of prostate; Z90.79 Acquired absence of other genital organ(s); Z98.890 Other specified postprocedural states; Z87.891 Personal history of nicotine dependence; Z80.7 Family history of other malignant neoplasms of lymphoid, hematopoietic and related tissues
CPT/HCPCS: 37215; 80048; 85025; 86850; 86900; 86901

== ENCOUNTER → 2020-11-19 | Outpatient (CLI) | payer MEDICARE, OTHER | END | disposition home or self-care (01) | LOC: LABWHC1 14:27 | PROVIDERS: ATTEND Nurse Practitioner | DX: I10 Essential (primary) hypertension (principal); G45.9 Transient cerebral ischemic attack, unspecified; R00.2 Palpitations | CPT/HCPCS: 36415; 83735 ==